=== PATIENT | male | born 1955 | race African-American/Black ===

== ENCOUNTER 2016-03-24 17:41 | Emergency (ER) | payer OTHER ==
[~2016-03-24] VITALS: Ht 172.7 cm; Wt 86.2 kg
[~2016-03-24 17:41] MED LIST: ACET325T9 PO; ALBUTEROL; AMIT25TA PO; AMLO10TA2 PO; AMLO10TA4 PO; AMLO5TAB2 PO; ASPI81TA2 PO; ASPI81TA9 PO; ATOR40TA59 PO; ATORVASTATIN CA80 MG PO; BISA-42 PO; BUDE10.2 IH; BUME2TAB PO; CANA300T PO; CARV12.52 PO; CARV25TA2 PO; CARV6.25 PO; CITA20TA5 PO; CLOP75TA PO; CYCL5TAB PO; DOXA4TAB3 PO; FLUT1DIS3 IH; FURO-68 PO; FURO40TA4; FURO40TA4 PO; GABA600T PO; HYDR-2868 PO; HYDR-2869 PO; Hydralazine Hcl PO; INSU100C SQ; INSU100C4 SQ; INSU100I13 SQ; INSU100I17 SQ; INSU100I27 SQ; INSU100V31; INSU100V8 SQ; ISOS120T2 PO; ISOS30TA17 PO; ISOS30TA4 PO; ISOS60TA2 PO; LEVO50TA5 PO; LISI-334 PO; LOSA50TA2 PO; LOSA50TA6 PO; METO2.5T PO; METR500T PO; NAPR250T2 PO; NIFE30TA7 PO; NITR0.4T SL; OMEP40CA5 PO; OXYC-250 PO; OXYC-323 PO; OXYC10TA32 PO; OXYC5TAB PO; PANT40TA5 PO; POLY119P4 PO; POTA20TA12 PO; PREG75CA PO; PROAIR HFA8.5 GM IH; SENN1TAB21 PO; SIMV20TA3 PO; SIMV40TA3 PO; SULF1TAB24 PO; TAMS0.4C2 PO; TAMS0.4C97 PO; TRAM50TA PO; WARF3TAB PO; WARF5TAB PO
[2016-03-24 18:11] VITALS: BP 172/82
--- NOTE | 2016-03-24 18:16 | PHYS DOC ---
Past Medical History Past Medical History: CAD, CHF, COPD, Diabetes-Type II, Hypertension, Kidney Stone, [place], Other Additional Past Medical Histor: Neuropathy, drug seeking behavior,iv drug use, Past Surgical History: Cholecystectomy, Coronary Bypass Surgery, Other Additional Past Surgical Histo: FEM/POP BYPASS Alcohol Use: None Drug Use: Heroin, Marijuana Adult General Chief Complaint Chief Complaint: FLANK PAIN HPI HPI Patient is a 60 year old male who presents with flank pain. Patient reports this evening he had acute onset of aching, stabbing right flank pain. This is accompanied by nausea. He has not vomited. No chest discomfort or shortness of breath. No fever. Patient has not taken anything for symptoms at home. Of note, patient has history kidney stones. Review of Systems Review of Systems Constitutional: Denies fever or chills Eyes: Denies change in visual acuity or eye pain HENT: Denies nasal congestion or sore throat Respiratory: Denies cough or shortness of breath Cardiovascular: Denies chest pain GI: Nausea. Denies abdominal pain, vomiting, bloody stools or diarrhea : Denies dysuria or hematuria Musculoskeletal: R flank pain Integument: Denies rash or skin lesions Neurologic: Denies headache, focal weakness or sensory changes Current Medications Current Medications Current Medications Medications (Trade) Dose Ordered Sig/John Start Time Stop Time Status Last Admin Dose Admin Acetaminophen/ Hydrocodone Bitart (Lortab 5/325) 2 tab 1X ONCE 03/24/16 19:15 03/24/16 19:16 DC 03/24/16 19:15 2 TAB Insulin Human Regular (Novolin R Vial) 8 unit 1X ONCE 03/24/16 20:45 03/24/16 20:50 DC 03/24/16 20:45 8 UNIT Morphine Sulfate 4 mg 4 mg 1X ONCE 03/24/16 18:30 03/24/16 19:09 DC Ondansetron HCl (Zofran Odt) 4 mg 1X ONCE 03/24/16 19:15 03/24/16 19:16 DC 03/24/16 19:15 4 MG Ondansetron HCl (Zofran) 4 mg 1X ONCE 03/24/16 18:30 03/24/16 19:09 DC Sodium Chloride (Iv Sodium Chloride 0.9% 500ml Bag) 500 ml @ 500 mls/hr 1X ONCE 03/24/16 18:30 03/24/16 19:09 DC Allergies Allergies Allergies Coded Allergies Type Severity Reaction Last Updated Verified No Known Drug Allergies 04/07/14 No Physical Exam Physical Exam Constitutional: Well developed, well nourished, no acute distress, non-toxic appearance HENT: Normocephalic, atraumatic, bilateral external ears normal Eyes: EOMI, conjunctiva normal, no discharge Neck: Normal range of motion, no stridor Cardiovascular: Heart rate normal, regular rhythm, no murmur Lungs & Thorax: Bilateral breath sounds clear to auscultation Abdomen: Bowel sounds normal, soft, non-distended, mild R side TTP without guarding or rebound Skin: Warm, dry, no erythema, no rash Back: R CVA TTP Extremities: No obvious deformity, no edema Neurologic: Alert and oriented X 3, no gross deficits noted Current Patient Data Vital Signs Vital Signs Date Time Temp Pulse Resp B/P Pulse Ox O2 Delivery O2 Flow Rate FiO2 03/24/16 19:15 16 98 Room Air 03/24/16 18:11 98.2 71 172/82 98.2 Lab Values Laboratory Tests Test 03/24/16 18:40 03/24/16 19:45 Urine Collection Type Unknown Urine Color Yellow Urine Clarity Clear Urine pH 6.0 Urine Specific [place] 1.015 Urine Protein 100mg/dL (NEG-TRACE) Urine Glucose (UA) >=1000mg/dL (NEG) Urine Ketones (Stick) Negativemg/dL (NEG) Urine Blood Negative (NEG) Urine Nitrite Negative (NEG) Urine Bilirubin Negative (NEG) Urine Urobilinogen Dipstick 0.2mg/dL (0.2 mg/dL) Urine Leukocyte Esterase Negative (NEG) Urine RBC Occ/HPF (0-2) Urine WBC Occ/HPF (0-4) Urine Squamous Epithelial Cells Occ/LPF Urine Bacteria 0/HPF (0-FEW) Urine Hyaline Casts Moderate/HPF White Blood Count 8.3x10^3/uL (4.0-11.0) Red Blood Count 4.59x10^6/uL (4.30-5.70) Hemoglobin 13.1g/dL (13.0-17.5) Hematocrit 40.9% (39.0-53.0) Mean Corpuscular Volume 89fL (79-100) Mean Corpuscular Hemoglobin 29pg (25-35) Mean Corpuscular Hemoglobin Concent 32g/dL (31-37) Red Cell Distribution Width 16.1% (11.5-14.5) H Platelet Count 207x10^3/uL (140-400) Neutrophils (%) (Auto) 79% (31-73) H Lymphocytes (%) (Auto) 16% (24-48) L Monocytes (%) (Auto) 4% (0-9) Eosinophils (%) (Auto) 1% (0-3) Basophils (%) (Auto) 1% (0-3) Neutrophils # (Auto) 6.6x10^3uL (1.8-7.7) Lymphocytes # (Auto) 1.3x10^3/uL (1.0-4.8) Monocytes # (Auto) 0.3x10^3/uL (0.0-1.1) Eosinophils # (Auto) 0.1x10^3/uL (0.0-0.7) Basophils # (Auto) 0.1x10^3/uL (0.0-0.2) Sodium Level 141mmol/L (136-145) Potassium Level 4.3mmol/L (3.5-5.1) Chloride Level 103mmol/L (98-107) Carbon Dioxide Level 29mmol/L (21-32) Anion Gap 9 (6-14) Blood Urea Nitrogen 40mg/dL (8-26) H Creatinine 2.0mg/dL (0.7-1.3) H Estimated GFR (Cockcroft-Gault) 41.4 BUN/Creatinine Ratio 20 (6-20) Glucose Level 475mg/dL (70-99) H Calcium Level 9.7mg/dL (8.5-10.1) Total Bilirubin 0.5mg/dL (0.2-1.0) Aspartate Amino Transferase (AST) 15U/L (15-37) Alanine Aminotransferase (ALT) 27U/L (16-63) Alkaline Phosphatase 161U/L (46-116) H Total Protein 7.6g/dL (6.4-8.2) Albumin 3.4g/dL (3.4-5.0) Albumin/Globulin Ratio 0.8 (1.0-1.7) L Laboratory Tests 03/24/16 19:45 Laboratory Tests 03/24/16 19:45 EKG EKG [] Radiology/Procedures Radiology/Procedures CT A/P: IMPRESSION No acute abnormality of the abdomen and pelvis is evident. Extensive calcified atheromatous disease. No focal aneurysmal dilatation of the abdominal aorta is seen. No urinary tract stone or hydronephrosis or hydroureter seen. Cardiomegaly. Course & Med Decision Making Course & Med Decision Making Pertinent Labs and Imaging studies reviewed. (See chart for details) Patient is 6-year-old male who presents with flank pain. Patient noted to the emergency department, has history of drug-seeking behavior. Will obtain CT abdomen/pelvis to rule out kidney stone. Pain possibly due to muscle spasm. Will also obtain basic labs. IV fluids, pain medication, nausea medication ordered for relief of symptoms. CT results as above. Nursing staff had difficulty obtaining IV access on patient, who then refused to be stuck anymore. Pain medication and nausea medication changed to oral route. Labs notable for hyperglycemia, but no evidence of DKA. Creatinine elevated but at baseline. Discussed results with patient. Discussed results with patient, as well as why IV access is needed, however he continues to refuse any more sticks. As he is refusing any more IV attempts, we will give subcutaneous insulin rather than further IVF. Discussed with patient the need for aggressive oral hydration as well as need to follow up with PCP. Patient discharged home with rx for muscle relaxant, instructions for close follow-up, strict return precautions. Dragon Disclaimer Dragon Disclaimer This electronic medical record was generated, in whole or in part, using a voice recognition dictation system. Departure Departure Impression: Primary Impression: Flank pain Additional Impression: Hyperglycemia Disposition: 01 HOME, SELF-CARE Condition: STABLE Referrals: NO PCP (PCP) Patient Instructions: Flank Pain, Hyperglycemia Additional Instructions: Thank you for allowing us to provide care today in the Emergency Department. Take the provided medication as directed. Use caution when taking this medication as it can make you drowsy. Schedule a follow up appointment with your primary care doctor. You have been provided a list of doctors in the area if you want a new doctor. It is very important for you to call and make an appointment to be seen in follow-up. Return promptly to the Emergency Department if you develop any new or concerning symptoms. Scripts Cyclobenzaprine Hcl 10 Mg [id number] Mg PO TID PRN MUSCLE SPASMS #15 TAB Prov:PAMELA LICEA MD 03/24/16 Problem Qualifiers PAMELA LICEA MD Mar 24, 2016 18:15
[2016-03-24] MEDS ORDERED: ONDANSETRON PF 4 MG/2 ML VIAL. IV ONE (18:30)
[2016-03-24] MEDS ORDERED: MORPHINE SULFATE 4 MG/ML DISP.SYRIN. IV ONE (18:30)
[2016-03-24] MEDS ORDERED: IV NORMAL SALINE 500ML BAG 500 ML IV ONE (18:30)
[2016-03-24 18:54] LABS: BILIRUBIN,URINE NEGATIVE (NEG); GLUCOSE,URINE >=1000 mg/dL (NEG); NITRITE,URINE NEGATIVE (NEG); PROTEIN,URINE 100 mg/dL (NEG-TRACE); UROBILINOGEN,URINE 0.2 mg/dL (0.2 mg/dL)
[2016-03-24 18:59] LABS: BACTERIA,URINE 0 /HPF (0-FEW); RBC,URINE OCC /HPF (0-2); SQUAMOUS EPITHELIAL CELL,UR OCC /LPF; WBC,URINE OCC /HPF (0-4)
--- NOTE | 2016-03-24 19:09 | RAD ---
PROCEDURE CT study of the abdomen and pelvis without contrast HISTORY Right flank pain. TECHNIQUE Noncontrast helical CT scanning of the abdomen and pelvis was performed. Without contrast, the sensitivity to detect organ pathology and GI tract pathology is decreased. One or more of the following individualized dose reduction techniques were utilized for this study: 1. Automated exposure control 2. Adjustment of the mA and/or kV according to patient size 3. Use of iterative reconstruction technique COMPARISON March 14, 2016. FINDINGS The liver and spleen and pancreas are homogeneous in appearance on this noncontrast study. The gallbladder is surgically absent. No extrahepatic biliary ductal dilatation is seen. No adrenal mass is evident. Vascular calcifications of both kidneys are seen. No renal stone or ureteral stone or hydronephrosis or hydroureter is seen. Urinary bladder wall is smooth. No renal mass is seen on either side. No focal aneurysmal dilatation of the abdominal aorta is seen. Calcified atheromatous disease of the abdominal aorta and iliac arteries and celiac artery and superior mesenteric artery and both renal arteries is seen. No enlarged abdominal or pelvic lymphadenopathy is seen. The appendix is normal. No obstructive bowel pattern is evident. No free air or free fluid or inflammatory change is seen. No osteolytic process is seen. Atelectasis of both lung bases is seen. Cardiomegaly is evident. IMPRESSION No acute abnormality of the abdomen and pelvis is evident. Extensive calcified atheromatous disease. No focal aneurysmal dilatation of the abdominal aorta is seen. No urinary tract stone or hydronephrosis or hydroureter seen. Cardiomegaly. Electronically signed by: Kenrick Dorantes MD (Mar 24, 2016 19:08:05)
[2016-03-24] MEDS ORDERED: ONDANSETRON ODT 4 MG TAB.RAPDIS PO ONE (19:15)
[2016-03-24] MEDS ORDERED: HYDROCODONE/APAP 5/325MG TABLET. PO ONE (19:15)
[2016-03-24 19:52] LABS: BASO # 0.1 x10^3/uL (0.0-0.2); BASO % 1 % (0-3); EOS % 1 % (0-3); HEMATOCRIT 40.9 % (39.0-53.0); HEMOGLOBIN 13.1 g/dL (13.0-17.5); LYMPH # 1.3 x10^3/uL (1.0-4.8); LYMPH % 16 % (24-48); MEAN CORPUSCULAR HEMOGLOBIN 29 pg (25-35); MEAN CORPUSCULAR HGB CONC 32 g/dL (31-37); MEAN CORPUSCULAR VOLUME 89 fL (79-100); MONO % 4 % (0-9); NEUT % 79 % (31-73); PLATELET COUNT 207 x10^3/uL (140-400); RED BLOOD COUNT 4.59 x10^6/uL (4.30-5.70); RED CELL DISTRIBUTION WIDTH 16.1 % (11.5-14.5); WHITE BLOOD COUNT 8.3 x10^3/uL (4.0-11.0)
[2016-03-24 20:27] LABS: CALCIUM 9.7 mg/dL (8.5-10.1); GFR 41.4; POTASSIUM 4.3 mmol/L (3.5-5.1)
[2016-03-24 20:33] LABS: ALBUMIN 3.4 g/dL (3.4-5.0); ALBUMIN/GLOBULIN RATIO 0.8 (1.0-1.7); TOTAL BILIRUBIN 0.5 mg/dL (0.2-1.0); TOTAL PROTEIN 7.6 g/dL (6.4-8.2)
[2016-03-24] MEDS ORDERED: CYCL10TA2 PO (20:42)
[2016-03-24] MEDS ORDERED: INSULIN REGULAR 100 UNIT/ML 10ML VIAL. SQ ONE (20:45)
== END 2016-03-24 21:21 | disposition home or self-care (01) ==
LOC: ER 17:41
DX: E11.65 Type 2 diabetes mellitus with hyperglycemia (principal); I25.2 Old myocardial infarction; I11.0 Hypertensive heart disease with heart failure; I50.9 Heart failure, unspecified; I25.10 Atherosclerotic heart disease of native coronary artery without angina pectoris; J44.9 Chronic obstructive pulmonary disease, unspecified; E11.40 Type 2 diabetes mellitus with diabetic neuropathy, unspecified; F12.10 Cannabis abuse, uncomplicated; F11.10 Opioid abuse, uncomplicated; Z87.442 Personal history of urinary calculi; Z95.1 Presence of aortocoronary bypass graft; Z90.49 Acquired absence of other specified parts of digestive tract
CPT/HCPCS: 36415; 74176; 80053; 81001; 85027; 96372; 99285; J1815; Q0162

== ENCOUNTER 2016-04-13 03:23 | Emergency (ER) | payer OTHER ==
[~2016-04-13 03:23] MED LIST changes: +CYCL10TA2 PO
--- NOTE | 2016-04-13 04:00 | PHYS DOC ---
Past Medical History Past Medical History: CAD, CHF, COPD, Diabetes-Type II, Hypertension, Kidney Stone, [place], Other Additional Past Medical Histor: Neuropathy, drug seeking behavior,iv drug use, Past Surgical History: Cholecystectomy, Coronary Bypass Surgery, Other Additional Past Surgical Histo: FEM/POP BYPASS Alcohol Use: None Drug Use: Heroin, Marijuana Adult General Chief Complaint Chief Complaint: MEDICATION REFILL HPI HPI Patient is a 60 year old gentleman with multiple medical problems presents ER today complaining of pain all throughout. Patient complains of pain to his teeth. Patient points of pain to his groins. Patient complains of having withdrawal symptoms from pain medicines. Patient reports that his doctor will give her any pain medicine service here in order to get assistance with pain management. Patient denies any fevers shaking chills nausea vomiting or diarrhea. Patient reports that he is aching all over and is requesting pain management. Patient's physical exam is unremarkable the ER. Patient does have a loose lower tooth however there is no evidence of any abscess or infection to his tooth at this time. Review of Systems Review of Systems Constitutional: Denies fever or chills [] Eyes: Denies change in visual acuity, redness, or eye pain [] Review of systems are negative except as documented in the history of present illness portion. Allergies Allergies Allergies Coded Allergies Type Severity Reaction Last Updated Verified No Known Drug Allergies 04/07/14 No Physical Exam Physical Exam Constitutional: Well developed, well nourished, no acute distress, non-toxic appearance. [] HENT: Normocephalic, atraumatic, bilateral external ears normal, oropharynx moist, no oral exudates, nose normal. [] Eyes: PERRLA, EOMI, conjunctiva normal, no discharge. [] Neck: Normal range of motion, no tenderness, supple, no stridor. [] Cardiovascular:Heart rate regular rhythm, no murmur [] Lungs & Thorax: Bilateral breath sounds clear to auscultation [] Abdomen: Bowel sounds normal, soft, no tenderness, no masses, no pulsatile masses. [] Skin: Warm, dry, no erythema, no rash. [] Back: No tenderness, no CVA tenderness. [] Extremities: No tenderness, no cyanosis, no clubbing, ROM intact, no edema. [] Neurologic: Alert and oriented X 3, normal motor function, normal sensory function, no focal deficits noted. [] Psychologic: Affect normal, judgement normal, mood normal. [] EKG EKG [] Radiology/Procedures Radiology/Procedures [] Course & Med Decision Making Course & Med Decision Making Pertinent Labs and Imaging studies reviewed. (See chart for details) [] This is a 6-year-old gentleman who presents ER today requesting pain management for his chronic pain. Patient reports his primary care physician will not give him any narcotic medicines that he is hoping that we would assist him with his pain. Patient does have an extensive history for narcotic abuse. Patient is a heroin user. I've discussed with the patient that he will need to talk to his doctor about his chronic pain issues. I will compassionately withhold any narcotic pain medicines from this patient in order to assist him with narcotic cessation. Dragon Disclaimer Dragon Disclaimer This electronic medical record was generated, in whole or in part, using a voice recognition dictation system. Departure Departure Impression: Primary Impression: Opioid abuse Additional Impression: Toothache Disposition: 01 HOME, SELF-CARE Condition: STABLE Referrals: UNKNOWN PCP NAME (PCP) Patient Instructions: Chronic Pain, Chronic Pain Management, Toothache-Brief Additional Instructions: Please talk to for further evaluation and management of her chronic pain. Problem Qualifiers RAUL SIMMONS MD Apr 13, 2016 04:00
[2016-04-13] MEDS ORDERED: TRAMADOL 50 MG TABLET. PO ONE (04:30)
== END 2016-04-13 04:46 | disposition home or self-care (01) ==
LOC: ER 03:23
DX: F11.10 Opioid abuse, uncomplicated (principal); K08.89 Other specified disorders of teeth and supporting structures; G89.29 Other chronic pain; I25.10 Atherosclerotic heart disease of native coronary artery without angina pectoris; E11.40 Type 2 diabetes mellitus with diabetic neuropathy, unspecified; I11.0 Hypertensive heart disease with heart failure; I50.9 Heart failure, unspecified; J44.9 Chronic obstructive pulmonary disease, unspecified; I25.2 Old myocardial infarction; F12.10 Cannabis abuse, uncomplicated; Z90.49 Acquired absence of other specified parts of digestive tract; Z95.1 Presence of aortocoronary bypass graft; Z87.442 Personal history of urinary calculi
CPT/HCPCS: 99282

== ENCOUNTER 2016-04-26 19:57 | Inpatient (IN) | payer OTHER ==
[~2016-04-26] VITALS: Ht 172.7 cm; Wt 78.6 kg
[2016-04-26 21:16] LABS: BASO # 0.1 x10^3/uL (0.0-0.2); BASO % 1 % (0-3); EOS % 1 % (0-3); HEMATOCRIT 37.4 % (39.0-53.0); LYMPH # 1.3 x10^3/uL (1.0-4.8); LYMPH % 16 % (24-48); MEAN CORPUSCULAR HEMOGLOBIN 29 pg (25-35); MEAN CORPUSCULAR HGB CONC 32 g/dL (31-37); MEAN CORPUSCULAR VOLUME 91 fL (79-100); MONO % 4 % (0-9); NEUT % 79 % (31-73); PLATELET COUNT 209 x10^3/uL (140-400); RED BLOOD COUNT 4.11 x10^6/uL (4.30-5.70); RED CELL DISTRIBUTION WIDTH 14.8 % (11.5-14.5); WHITE BLOOD COUNT 7.9 x10^3/uL (4.0-11.0)
[2016-04-26 21:18] LABS: BILIRUBIN,URINE NEGATIVE (NEG); GLUCOSE,URINE >=1000 mg/dL (NEG); NITRITE,URINE NEGATIVE (NEG); PROTEIN,URINE 100 mg/dL (NEG-TRACE); UROBILINOGEN,URINE 0.2 mg/dL (0.2 mg/dL)
[2016-04-26 21:39] LABS: ALBUMIN 3.3 g/dL (3.4-5.0); ALBUMIN/GLOBULIN RATIO 0.8 (1.0-1.7); CALCIUM 9.7 mg/dL (8.5-10.1); CREATININE 1.8 mg/dL (0.7-1.3); GFR 46.6; POTASSIUM 4.7 mmol/L (3.5-5.1); TOTAL BILIRUBIN 0.4 mg/dL (0.2-1.0); TOTAL PROTEIN 7.6 g/dL (6.4-8.2)
[2016-04-26 21:53] LABS: BACTERIA,URINE 0 /HPF (0-FEW); RBC,URINE 0 /HPF (0-2); SQUAMOUS EPITHELIAL CELL,UR FEW /LPF; WBC,URINE 0 /HPF (0-4)
[2016-04-26] MEDS ORDERED: IV NORMAL SALINE 1000ML BAG 1,000 ML IV ONE (22:00)
--- NOTE | 2016-04-26 22:02 | ED.ADGEN ---
Past Medical History Past Medical History: CAD, CHF, COPD, Diabetes-Type II, Hypertension, Kidney Stone, [place], Other Additional Past Medical Histor: Neuropathy, drug seeking behavior,iv drug use, Past Surgical History: Cholecystectomy, Coronary Bypass Surgery, Other Additional Past Surgical Histo: FEM/POP BYPASS Alcohol Use: None Drug Use: Heroin, Marijuana Adult General Chief Complaint Chief Complaint: SHORTNESS OF BREATH HPI HPI Patient is a 61 year old man, history of type 2 diabetes mellitus, hypertension , COPD, CHF, who presents to the emergency department with complaint of "just not feeling well". Patient states he began feeling ill this afternoon, is complaining of generalized malaise, no focal weakness, some shortness of breath , mild cough, rhinorrhea, no nausea, vomiting, diarrhea, no chest pain, no headache, no injuries. He states that he has been compliant with his medications. Denies any swelling extremities, denies any recent travel or surgery. Review of Systems Review of Systems Constitutional: Denies fever or chills. Generalized malaise. Eyes: Denies change in visual acuity. [] HENT: Denies nasal congestion or sore throat. [] Respiratory: Nonproductive cough, shortness of breath.] Cardiovascular: Denies chest pain or edema. [] GI: Denies abdominal pain, nausea, vomiting, bloody stools or diarrhea. [] : Denies dysuria. [] Musculoskeletal: Denies back pain or joint pain. [] Integument: Denies rash. [] Neurologic: Denies headache, focal weakness or sensory changes. [] Endocrine: Denies polyuria or polydipsia. [] Lymphatic: Denies swollen glands. [] Psychiatric: Denies depression or anxiety. [] Current Medications Current Medications Current Medications Medications (Trade) Dose Ordered Sig/John Start Time Stop Time Status Last Admin Dose Admin Acetaminophen (Tylenol) 650 mg PRN Q4HRS PRN 04/26/16 23:15 04/27/16 23:14 Acetaminophen 650 mg 650 mg 1X ONCE 04/26/16 23:15 04/26/16 23:16 DC Albuterol/ Ipratropium (Duoneb) 3 ml RTQID 04/27/16 08:00 04/28/16 07:59 Dextrose 12.5 gm PRN Q15MIN PRN 04/26/16 23:15 Insulin Aspart (Novolog) 0-7 UNITS TIDWMEALS 04/27/16 08:00 Insulin Human Regular/Sodium Chloride (Novolin R Vial/ Iv Normal Saline 150ml) 151.5 ml @ 0 mls/hr CONT PRN 04/26/16 23:15 Ondansetron HCl 4 mg 4 mg PRN Q8HRS PRN 04/26/16 23:15 04/27/16 23:14 Sodium Chloride (Iv Sodium Chloride 0.9% 1000ml Bag) 1,000 ml @ 125 mls/hr Q8H 04/26/16 23:06 04/27/16 23:05 Allergies Allergies Allergies Coded Allergies Type Severity Reaction Last Updated Verified No Known Drug Allergies 04/07/14 No Physical Exam Physical Exam Constitutional: Well developed, well nourished, no acute distress, non-toxic appearance. [] HENT: Normocephalic, atraumatic, bilateral external ears normal, oropharynx moist, no oral exudates, nose normal. [] Eyes: PERRLA, EOMI, conjunctiva normal, no discharge. [] Neck: Normal range of motion, no tenderness, supple, no stridor. [] Cardiovascular:Heart rate regular rhythm, no murmur , S1, S2, no rubs or gallops. [] Lungs & Thorax: Denies breath sounds at bases bilaterally, no wheezing, rhonchi , rales. No chest wall tenderness or crepitus. [] Abdomen: Bowel sounds normal, soft, no tenderness, no masses, no pulsatile masses. [] Skin: Warm, dry, no erythema, no rash. [] Back: No tenderness, no CVA tenderness. [] Extremities: No tenderness, no cyanosis, no clubbing, ROM intact, patient with 1 + pedal edema bilaterally. Neurologic: Alert and oriented X 3, normal motor function, normal sensory function, no focal deficits noted. [] Psychologic: Affect normal, judgement normal, mood normal. [] Current Patient Data Vital Signs Vital Signs Date Time Temp Pulse Resp B/P Pulse Ox O2 Delivery O2 Flow Rate FiO2 04/26/16 20:08 97.5 96 24 177/84 99 Room Air 97.5 Lab Values Laboratory Tests Test 04/26/16 20:25 04/26/16 21:00 04/26/16 21:20 White Blood Count 7.9x10^3/uL (4.0-11.0) Red Blood Count 4.11x10^6/uL (4.30-5.70) L Hemoglobin 12.0g/dL (13.0-17.5) L Hematocrit 37.4% (39.0-53.0) L Mean Corpuscular Volume 91fL (79-100) Mean Corpuscular Hemoglobin 29pg (25-35) Mean Corpuscular Hemoglobin Concent 32g/dL (31-37) Red Cell Distribution Width 14.8% (11.5-14.5) H Platelet Count 209x10^3/uL (140-400) Neutrophils (%) (Auto) 79% (31-73) H Lymphocytes (%) (Auto) 16% (24-48) L Monocytes (%) (Auto) 4% (0-9) Eosinophils (%) (Auto) 1% (0-3) Basophils (%) (Auto) 1% (0-3) Neutrophils # (Auto) 6.3x10^3uL (1.8-7.7) Lymphocytes # (Auto) 1.3x10^3/uL (1.0-4.8) Monocytes # (Auto) 0.3x10^3/uL (0.0-1.1) Eosinophils # (Auto) 0.1x10^3/uL (0.0-0.7) Basophils # (Auto) 0.1x10^3/uL (0.0-0.2) Sodium Level 138mmol/L (136-145) Potassium Level 4.7mmol/L (3.5-5.1) Chloride Level 101mmol/L (98-107) Carbon Dioxide Level 24mmol/L (21-32) Anion Gap 13 (6-14) Blood Urea Nitrogen 34mg/dL (8-26) H Creatinine 1.8mg/dL (0.7-1.3) H Estimated GFR (Cockcroft-Gault) 46.6 BUN/Creatinine Ratio 19 (6-20) Glucose Level 538mg/dL (70-99) *H Calcium Level 9.7mg/dL (8.5-10.1) Total Bilirubin 0.4mg/dL (0.2-1.0) Aspartate Amino Transferase (AST) 13U/L (15-37) L Alanine Aminotransferase (ALT) 20U/L (16-63) Alkaline Phosphatase 142U/L (46-116) H Troponin I Quantitative < 0.017ng/mL (0.000-0.055) UT-Urj-N-Type Natriuretic Peptide 1276pg/mL (0-124) H Total Protein 7.6g/dL (6.4-8.2) Albumin 3.3g/dL (3.4-5.0) L Albumin/Globulin Ratio 0.8 (1.0-1.7) L Urine Collection Type Unknown Urine Color Yellow Urine Clarity Clear Urine pH 7.0 Urine Specific [place] 1.015 Urine Protein 100mg/dL (NEG-TRACE) Urine Glucose (UA) >=1000mg/dL (NEG) Urine Ketones (Stick) Negativemg/dL (NEG) Urine Blood Negative (NEG) Urine Nitrite Negative (NEG) Urine Bilirubin Negative (NEG) Urine Urobilinogen Dipstick 0.2mg/dL (0.2 mg/dL) Urine Leukocyte Esterase Negative (NEG) Urine RBC 0/HPF (0-2) Urine WBC 0/HPF (0-4) Urine Squamous Epithelial Cells Few/LPF Urine Bacteria 0/HPF (0-FEW) Urine Hyaline Casts Moderate/HPF Influenza Type A Antigen Negative (NEGATIVE) Influenza Type B Antigen Negative (NEGATIVE) Laboratory Tests 04/26/16 20:25 Laboratory Tests 04/26/16 20:25 EKG EKG EC: Sinus rhythm, heart rate 91 beats minute, left axis deviation with incomplete right bundle tg block noted, left internal hypertrophy, moderate baseline artifact noted, QTc of 506, MO 138, QRS of 116, abnormal ECG, does not meet STEMI criteria. As interpreted by me. [] Radiology/Procedures Radiology/Procedures Chest x-ray: One view: Top normal cardiac silhouette, sternotomy wires in place , no discrete infiltrates, effusions, soft tissue or bony abnormalities identified. As interpreted by me. [] Course & Med Decision Making Course & Med Decision Making Pertinent Labs and Imaging studies reviewed. (See chart for details) Patient complaining of generalized malaise, some shortness breath, no chest pain , GI complaints as well. Noted to have an blood glucose of greater than 500, no evidence of acidosis noted, chest x-rays are markable, patient with a persistently elevated proBNP at greater than 1200. Troponin is negative. Patient received IV fluids in the ED, will be initiated on insulin protocol with drip for hyperglycemia, no evidence of infection noted, although patient states he is taking medications as directed, do have concerns that he has been noncompliant with medications. Did discuss with patient that based on his history of drug abuse, and concern for misuse, that he will not receive IV narcotics at this time, this was also discussed with Dr. Quinteros of internal medicine, the patient's accepting physician, who is in agreement with this plan. Patient was offered oral medications for his chronic musculoskeletal pain. Patient admitted to the medical surgical floor, with bridge orders per request of Dr. Quinteros. Insulin drip initiated in the ED without issue. Dragon Disclaimer Dragon Disclaimer This electronic medical record was generated, in whole or in part, using a voice recognition dictation system. Departure Impression: Primary Impression: Hyperglycemia Disposition: ADMITTED INPATIENT Admitting Physician: Other Condition: IMPROVED CHENG MOTA DO Apr 26, 2016 22:02
[2016-04-26 22:10] LABS: OBC FLU VALID
[2016-04-26] MEDS ORDERED: ACETAMINOPHEN 325 MG TABLET. PO ONE (23:15)
[2016-04-26] MEDS ORDERED: ACETAMINOPHEN 325 MG TABLET. PO PRN (23:15)
[2016-04-26] MEDS ORDERED: INSULIN REGULAR VIAL 150 UNIT in 0.9 % SODIUM CHLORIDE 150ML 150 ML IV PRN (23:15)
[2016-04-26] MEDS ORDERED: ONDANSETRON PF 4 MG/2 ML VIAL. IV PRN (23:15)
[2016-04-26] MEDS ORDERED: DEXTROSE 50% 25 GM / 50ML DISP.SYRIN. IV PRN (23:15)
[2016-04-27] MEDS: IV NORMAL SALINE 1000ML BAG 1,000 ML IV SCH ×3 (01:12→11:04)
[2016-04-27 01:30] VITALS: BP 166/73
[2016-04-27 03:06] VITALS: BP 147/65
[2016-04-27 06:06] LABS: BASO % 1 % (0-3); EOS % 2 % (0-3); HEMATOCRIT 35.1 % (39.0-53.0); HEMOGLOBIN 11.5 g/dL (13.0-17.5); LYMPH % 27 % (24-48); MEAN CORPUSCULAR HEMOGLOBIN 29 pg (25-35); MEAN CORPUSCULAR HGB CONC 33 g/dL (31-37); MEAN CORPUSCULAR VOLUME 89 fL (79-100); MONO % 8 % (0-9); NEUT % 62 % (31-73); PLATELET COUNT 212 x10^3/uL (140-400); RED BLOOD COUNT 3.94 x10^6/uL (4.30-5.70); RED CELL DISTRIBUTION WIDTH 14.4 % (11.5-14.5); WHITE BLOOD COUNT 7.4 x10^3/uL (4.0-11.0)
[2016-04-27 06:17] LABS: CALCIUM 8.8 mg/dL (8.5-10.1); CREATININE 1.5 mg/dL (0.7-1.3); GFR 57.6; POTASSIUM 3.9 mmol/L (3.5-5.1)
[2016-04-27 07:00] VITALS: BP 169/61
[2016-04-27] MEDS: IPRATRPIUM/ALBUTEROL 0.5/2.5MG 3 ML NEBU. NEB SCH ×4 (07:58→19:42)
[2016-04-27] MEDS: INSULIN ASPART 300 UNITS/3 ML INSULN.PEN SQ SCH ×3 (08:12→17:28)
--- NOTE | 2016-04-27 08:46 | EKG ---
[facility] [address] [place] [address] Test Date: 2016-04-26 Test Time: 20:06:45 Pat Name: DARNELL AMIN Department: Room: Gender: M Electrotyper: : 1955 Requested By: CHENG MOTA Order Number: [id number] Reading MD: Measurements Intervals [place] Rate: 91 P: 44 NM: 138 QRS: -10 QRSD: 116 T: 83 QT: 410 QTc: 506 Interpretive Statements SINUS RHYTHM LEFT ATRIAL ABNORMALITY LEFTWARD AXIS INCOMPLETE RIGHT BUNDLE BRANCH BLOCK LVH WITH REPOLARIZATION ABNORMALITY PROLONGED QT RI6.01 Unconfirmed report No previous ECG available for comparison
--- NOTE | 2016-04-27 10:15 | RAD ---
AP portable chest radiograph 04/26/2016 Clinical History: Chest pain and shortness of breath. An AP portable erect digital radiograph of the chest was obtained. Comparison study is dated 01/16/2016. Surgical changes are seen consistent with a CABG procedure. The cardiac silhouette is mildly enlarged. The thoracic aorta is tortuous. Atherosclerotic calcification of the thoracic aorta is seen. No acute pulmonary infiltrate is noted. No pleural effusion or pneumothorax is seen. Impression: Mild cardiomegaly. No acute pulmonary infiltrate is seen.
[2016-04-27 11:00] VITALS: BP 165/59
[2016-04-27 15:00] VITALS: BP 171/79
--- NOTE | 2016-04-27 17:06 | DISCH ---
DISCHARGE INSTRUCTIONS Condition on Discharge Condition on Discharge: Stable Activity After Discharge Activity Instructions for Disc: No restrictions Diet after Discharge Diet after Discharge: Diabetic No Calorie Level Contacting the DR. after DC Call your doctor for: Follow-Up Follow up with: PCP in 1 week ALTAGRACIA WING MD Apr 27, 2016 17:06
--- NOTE | 2016-04-28 03:10 | SSS ---
ADMIT DATE: 04/27/2016 CHIEF COMPLAINT: Shortness of breath, hyperglycemia. HISTORY OF PRESENT ILLNESS: The patient is a 61-year-old gentleman with significant cardiac history as well as diabetes who is unfortunately a frequent flyer here in the hospital for various complaints. He presented to the Emergency Room with complaints of shortness of breath and "just not feeling well." He states that general malaise started in the late afternoon, no focal pain except for the shortness of breath, mild cough, mild runny nose. Denies any other symptoms including fevers. In the Emergency Room, he was essentially found without any respiratory distress or evidence of infection. However, his blood sugar was greater than 500 and he was therefore admitted for glucose management. PAST MEDICAL HISTORY: Diabetes mellitus, COPD, CAD, CHF, hypertension, hyperlipidemia, nephrolithiasis, diabetic neuropathy, IV drug use narcotic seeking behavior. PAST SURGICAL HISTORY: He is status post coronary bypass surgery, cholecystectomy and fem-pop bypass. FAMILY HISTORY: Positive for CAD and diabetes. SOCIAL HISTORY: He currently lives with his sister. Positive for heroin and marijuana. ALLERGIES: No known drug allergies. MEDICATIONS: MAR reconciled with home medications. REVIEW OF SYSTEMS: Respiratory symptoms now have completely resolved. He has no major complaints. He is very hungry. Rest of organ system review is negative. PHYSICAL EXAMINATION: VITAL SIGNS: From today show a blood pressure of 171/79, heart rate of 86, respiratory rate at 18. He is afebrile. GENERAL: This is a well-nourished 61-year-old -[place] gentleman, alert and oriented, in no acute distress. HEENT: Shows no scleral icterus. LUNGS: Clear. HEART: Regular rate and rhythm. ABDOMEN: Has positive bowel sounds, soft, nontender. EXTREMITIES: Show no edema, no clubbing, no cyanosis. SKIN: Warm, soft and dry without any rash. Very dry lower extremities, evidence of venous harvesting in left lower extremity. LABORATORY DATA: CBC with a WBC of 7.4, hemoglobin 11.5, platelets of 212. BUN and creatinine of 9 and 28. Sodium this morning at 149, potassium 3.9. Glucose 115 at which time glucose drip was stopped, he has been running in the upper 100s-200s since. ASSESSMENT AND PLAN: The patient is a 61-year-old diabetic who is unfortunately noncompliant with his regimen or diet who presented with minor complaints which have resolved, possibly upper respiratory infection. Hyperglycemia likewise is under control. He is not willing to stick to diabetic diet or regular blood sugar measurements. We will therefore discharge him to home. Follow up with his primary care physician. DISCHARGE DATE: 04/27/2015 DISCHARGE DISPOSITION: To home. DISCHARGE CONDITION: Improved. DISCHARGE DIAGNOSIS: Hyperglycemia. DISCHARGE MEDICATIONS: Please see MAR. DISCHARGE INSTRUCTIONS: The patient will follow up with PCP in 1 week. ALTAGRACIA WING MD DR: DUSTY/nts JOB#: [id number] / [id number] Leroy [place]
== END 2016-04-27 19:00 | disposition home or self-care (01) | DRG 637 ==
LOC: ER 19:57 → 5 SOUTH 22:55
PROVIDERS: ADMIT Internal Medicine Hematology & Oncology; ATTEND Internal Medicine Hematology & Oncology
DX: E11.65 Type 2 diabetes mellitus with hyperglycemia (principal); N17.0 Acute kidney failure with tubular necrosis; J06.9 Acute upper respiratory infection, unspecified; E78.5 Hyperlipidemia, unspecified; E11.40 Type 2 diabetes mellitus with diabetic neuropathy, unspecified; I25.10 Atherosclerotic heart disease of native coronary artery without angina pectoris; I11.0 Hypertensive heart disease with heart failure; I50.9 Heart failure, unspecified; F11.10 Opioid abuse, uncomplicated; J44.9 Chronic obstructive pulmonary disease, unspecified; Z82.49 Family history of ischemic heart disease and other diseases of the circulatory system; Z87.442 Personal history of urinary calculi; Z83.3 Family history of diabetes mellitus; Z91.19 Patient's noncompliance with other medical treatment and regimen; Z95.1 Presence of aortocoronary bypass graft; Z90.49 Acquired absence of other specified parts of digestive tract; I25.2 Old myocardial infarction
CPT/HCPCS: 36415; 71010; 80048; 80053; 81001; 82947; 83880; 84484; 85027; 87804; 93005; 94640; 96365; J1815; J7030; J7042; J7620; 99285-25

== ENCOUNTER 2016-05-06 20:57 | Emergency (ER) | payer OTHER ==
[~2016-05-06] VITALS: Ht 172.7 cm; Wt 79.4 kg
[2016-05-06 23:04] LABS: OBC FLU VALID
[2016-05-06] MEDS ORDERED: OSEL75CA PO (23:15)
[2016-05-06] MEDS ORDERED: HYDR115S2 PO (23:15)
--- NOTE | 2016-05-06 23:15 | PHYS DOC ---
Past Medical History Past Medical History: CAD, CHF, COPD, Diabetes-Type II, Hypertension, Kidney Stone, [place], Other Additional Past Medical Histor: Neuropathy, drug seeking behavior,iv drug use, Past Surgical History: Cholecystectomy, Coronary Bypass Surgery, Other Additional Past Surgical Histo: FEM/POP BYPASS Alcohol Use: None Drug Use: Heroin, Marijuana Adult General Chief Complaint Chief Complaint: GENERALIZED BODY ACHES HPI HPI Patient is a 61 year old male who presents with malaise. Patient reports starting this evening he is feeling under the weather. He reports chills and general body aches. He denies any cough. He has not taken anything for symptoms. No other acute complaints. Review of Systems Review of Systems Constitutional: Chills, fatigue Eyes: Denies change in visual acuity or eye pain HENT: Denies nasal congestion or sore throat Respiratory: Denies cough or shortness of breath Cardiovascular: Denies chest pain GI: Denies abdominal pain, nausea, vomiting, bloody stools or diarrhea : Denies dysuria or hematuria Musculoskeletal: Generalized body aches Integument: Denies rash or skin lesions Neurologic: Denies headache, focal weakness or sensory changes Current Medications Current Medications Current Medications Medications (Trade) Dose Ordered Sig/John Start Time Stop Time Status Last Admin Dose Admin Acetaminophen (Tylenol) 1,000 mg 1X ONCE 05/06/16 23:30 05/06/16 23:31 DC 05/06/16 23:27 1,000 MG Hydralazine HCl (Apresoline) 10 mg 1X ONCE 05/06/16 23:55 05/06/16 23:56 DC 05/06/16 23:59 10 MG Oseltamivir Phosphate (Tamiflu) 75 mg 1X ONCE 05/06/16 23:30 05/06/16 23:31 DC 05/06/16 23:27 75 MG Allergies Allergies Allergies Coded Allergies Type Severity Reaction Last Updated Verified No Known Drug Allergies 04/07/14 No Physical Exam Physical Exam Constitutional: Well developed, well nourished, no acute distress, non-toxic appearance HENT: Normocephalic, atraumatic, bilateral external ears normal Eyes: EOMI, conjunctiva normal, no discharge Neck: Normal range of motion, no stridor Cardiovascular: Heart rate normal, regular rhythm, no murmur Lungs & Thorax: Bilateral breath sounds clear to auscultation Abdomen: Bowel sounds normal, soft, non-distended, no TTP Skin: Warm, dry, no erythema, no rash Extremities: No obvious deformity, no edema Neurologic: Alert and oriented X 3, no gross deficits noted Current Patient Data Vital Signs Vital Signs Date Time Temp Pulse Resp B/P Pulse Ox O2 Delivery O2 Flow Rate FiO2 05/07/16 00:17 74 18 166/73 Room Air 05/06/16 23:24 100 05/06/16 22:00 98.4 98.4 Lab Values Laboratory Tests Test 05/06/16 22:13 Influenza Type A Antigen Negative (NEGATIVE) Influenza Type B Antigen Positive (NEGATIVE) EKG EKG [] Radiology/Procedures Radiology/Procedures [] Course & Med Decision Making Course & Med Decision Making Pertinent Labs and Imaging studies reviewed. (See chart for details) Patient is 61-year-old male who presents with malaise. Has Lexie had influenza swab, which was positive for influenza B. Dose of Tamiflu and acetaminophen ordered for symptoms. Per patient's request, we will small dose of hydralazine as his blood pressure is elevated, though he is asymptomatic with respect to this. Will discharge home with prescription for Tamiflu and cough syrup. Given instructions for follow-up, return precautions. Dragon Disclaimer Dragon Disclaimer This electronic medical record was generated, in whole or in part, using a voice recognition dictation system. Departure Departure Impression: Primary Impression: Influenza B Disposition: 01 HOME, SELF-CARE Condition: STABLE Referrals: CHANDLER FUCHS DO (PCP) Patient Instructions: Influenza, Adult Additional Instructions: Thank you for allowing us to provide care today in the Emergency Department. Take the provided medication as directed. Use caution when taking the cough syrup as it can make you drowsy. Schedule a follow up appointment with your primary care doctor as soon as possible. Return promptly to the Emergency Department if you develop any new or concerning symptoms. Scripts Hydrocodone/Chlorphen Polis (Tussionex Pennkinetic Susp)480 Ml Larisa.[id number] Ml PO BID PRN COUGH #100 ML Prov:PAMELA LICEA MD 05/06/16 Oseltamivir Phosphate (Tamiflu)75 Mg Capsule1 Cap PO BID #10 CAP Prov:PAMELA LICEA MD 05/06/16 PAMELA LICEA MD May 06, 2016 23:16
[2016-05-06] MEDS ORDERED: ACETAMINOPHEN 500 MG TABLET PO ONE (23:30)
[2016-05-06] MEDS ORDERED: OSELTAMIVIR 75 MG CAPSULE PO ONE (23:30)
[2016-05-06] MEDS ORDERED: HYDRALAZINE 10 MG TABLET PO ONE (23:55)
[2016-05-07 00:17] VITALS: BP 166/73
== END 2016-05-07 00:55 | disposition home or self-care (01) ==
LOC: ER 20:57
DX: J10.1 Influenza due to other identified influenza virus with other respiratory manifestations (principal); E11.9 Type 2 diabetes mellitus without complications; I10 Essential (primary) hypertension; I25.10 Atherosclerotic heart disease of native coronary artery without angina pectoris; I50.9 Heart failure, unspecified; I25.2 Old myocardial infarction; J44.9 Chronic obstructive pulmonary disease, unspecified; I11.0 Hypertensive heart disease with heart failure; F12.10 Cannabis abuse, uncomplicated; E11.40 Type 2 diabetes mellitus with diabetic neuropathy, unspecified; Z98.890 Other specified postprocedural states; F11.10 Opioid abuse, uncomplicated; Z87.442 Personal history of urinary calculi; Z95.1 Presence of aortocoronary bypass graft
CPT/HCPCS: 87804; 99284

== ENCOUNTER 2016-06-22 18:03 | Emergency (ER) | payer OTHER ==
[~2016-06-22] VITALS: Ht 172.7 cm; Wt 81.6 kg
[~2016-06-22 18:03] MED LIST changes: +HYDR115S2 PO; +OSEL75CA PO
--- NOTE | 2016-06-22 18:36 | ED.ADGEN ---
Past Medical History Past Medical History: CAD, CHF, COPD, Diabetes-Type II, Hypertension, Kidney Stone, [place], Other Additional Past Medical Histor: Neuropathy, drug seeking behavior,iv drug use, Past Surgical History: Cholecystectomy, Coronary Bypass Surgery, Other Additional Past Surgical Histo: FEM/POP BYPASS Alcohol Use: None Drug Use: Heroin, Marijuana Adult General Chief Complaint Chief Complaint: ABDOMINAL PAIN HPI HPI Patient is a 61 year old male with an extensive medical history presents emergency department complaining of right lower quadrant pain for last one hour. He states he has never had pain summer to this. He denies any vomiting but reports some nausea. Denies any fevers or any other recent illness. Review of Systems Review of Systems Constitutional: Denies fever or chills. [] Eyes: Denies change in visual acuity. [] HENT: Denies nasal congestion or sore throat. [] Respiratory: Denies cough or shortness of breath. [] Cardiovascular: Denies chest pain or edema. [] GI: Denies abdominal pain, nausea, vomiting, bloody stools or diarrhea. [] : Denies dysuria. [] Musculoskeletal: Denies back pain or joint pain. [] Integument: Denies rash. [] Neurologic: Denies headache, focal weakness or sensory changes. [] Endocrine: Denies polyuria or polydipsia. [] Lymphatic: Denies swollen glands. [] Psychiatric: Denies depression or anxiety. [] Current Medications Current Medications Current Medications Medications (Trade) Dose Ordered Sig/John Start Time Stop Time Status Last Admin Dose Admin Hydromorphone HCl (Dilaudid) 1 mg 1X ONCE 06/22/16 18:45 06/22/16 18:46 DC 06/22/16 18:48 1 MG Ondansetron HCl 4 mg 4 mg 1X ONCE 06/22/16 18:45 06/22/16 18:46 DC 06/22/16 18:46 4 MG Sodium Chloride (Iv Sodium Chloride 0.9% 1000ml Bag) 1,000 ml @ 1,000 mls/hr Q1H 06/22/16 18:45 06/22/16 19:44 DC 06/22/16 18:49 1,000 MLS/HR Allergies Allergies Allergies Coded Allergies Type Severity Reaction Last Updated Verified No Known Drug Allergies 04/07/14 No Physical Exam Physical Exam Constitutional: Well developed, well nourished, no acute distress, non-toxic appearance. [] HENT: Normocephalic, atraumatic, bilateral external ears normal, oropharynx moist, no oral exudates, nose normal. [] Eyes: PERRLA, EOMI, conjunctiva normal, no discharge. [] Neck: Normal range of motion, no tenderness, supple, no stridor. [] Cardiovascular:Heart rate regular rhythm, no murmur [] Lungs & Thorax: Bilateral breath sounds clear to auscultation [] Abdomen: Bowel sounds normal, soft, right lower quadrant tenderness to palpation , voluntary guarding, no masses, no pulsatile masses. [] Skin: Warm, dry, no erythema, no rash. [] Back: No tenderness, no CVA tenderness. [] Extremities: No tenderness, no cyanosis, no clubbing, ROM intact, no edema. [] Neurologic: Alert and oriented X 3, normal motor function, normal sensory function, no focal deficits noted. [] Psychologic: Affect normal, judgement normal, mood normal. [] Current Patient Data Vital Signs Vital Signs Date Time Temp Pulse Resp B/P Pulse Ox O2 Delivery O2 Flow Rate FiO2 06/22/16 18:48 20 97 Room Air 06/22/16 18:24 97.8 75 208/86 97.8 Lab Values Laboratory Tests Test 06/22/16 18:20 White Blood Count 10.0x10^3/uL (4.0-11.0) Red Blood Count 3.87x10^6/uL (4.30-5.70) L Hemoglobin 12.0g/dL (13.0-17.5) L Hematocrit 37.1% (39.0-53.0) L Mean Corpuscular Volume 96fL (79-100) Mean Corpuscular Hemoglobin 31pg (25-35) Mean Corpuscular Hemoglobin Concent 32g/dL (31-37) Red Cell Distribution Width 13.9% (11.5-14.5) Platelet Count 242x10^3/uL (140-400) Neutrophils (%) (Auto) 78% (31-73) H Lymphocytes (%) (Auto) 16% (24-48) L Monocytes (%) (Auto) 5% (0-9) Eosinophils (%) (Auto) 1% (0-3) Basophils (%) (Auto) 1% (0-3) Neutrophils # (Auto) 7.8x10^3uL (1.8-7.7) H Lymphocytes # (Auto) 1.6x10^3/uL (1.0-4.8) Monocytes # (Auto) 0.5x10^3/uL (0.0-1.1) Eosinophils # (Auto) 0.1x10^3/uL (0.0-0.7) Basophils # (Auto) 0.1x10^3/uL (0.0-0.2) Sodium Level 141mmol/L (136-145) Potassium Level 4.6mmol/L (3.5-5.1) Chloride Level 105mmol/L (98-107) Carbon Dioxide Level 27mmol/L (21-32) Anion Gap 9 (6-14) Blood Urea Nitrogen 50mg/dL (8-26) H Creatinine 1.9mg/dL (0.7-1.3) H Estimated GFR (Cockcroft-Gault) 43.8 Glucose Level 321mg/dL (70-99) H Calcium Level 9.1mg/dL (8.5-10.1) Total Bilirubin 0.5mg/dL (0.2-1.0) Direct Bilirubin 0.1mg/dL (0.0-0.2) Aspartate Amino Transferase (AST) 28U/L (15-37) Alanine Aminotransferase (ALT) 39U/L (16-63) Alkaline Phosphatase 183U/L (46-116) H Total Protein 7.4g/dL (6.4-8.2) Albumin 2.9g/dL (3.4-5.0) L Lipase 335U/L (73-393) Laboratory Tests 06/22/16 18:20 Laboratory Tests 06/22/16 18:20 EKG EKG [] Radiology/Procedures Radiology/Procedures PROCEDURE CT abdomen and pelvis without contrast dated 06/22/2016. HISTORY Right lower quadrant pain for 1 hour. TECHNIQUE Contiguous axial imaging of the abdomen and pelvis performed without the administration of IV or oral contrast.Exposure: One or more of the following individualized dose reduction techniques were utilized for this exam: 1. Automated exposure control. 2. Adjustment of the mA and/or kV according to patient size. 3. Use of iterative reconstruction technique. COMPARISON 03/24/2016. FINDINGS Limited images of the lung bases show mild patchy ground-glass opacity in the lower lobes, likely atelectasis. Heart size mildly enlarged. No pleural or pericardial effusion. Solid abdominal viscera not well evaluated in the absence of contrast material. No apparent attenuation abnormality of the liver or spleen. Gallbladder is surgically absent. Pancreas, adrenal glands unremarkable. Both kidneys are symmetric in size and attenuation. There is possible 2 millimeter calcific stone at the left kidney lower pole. No ureteral stone or hydronephrosis. One opacified GI tract normal in caliber and contour. No focal bowel wall thickening. The appendix is normal in caliber. No ascites or lymphadenopathy. Urinary bladder is mildly distended. No calcific bladder stone. No free pelvic fluid or pelvic lymphadenopathy. Prostate gland upper limits of normal in size. Bone window show no acute findings. Multilevel spondylosis. IMPRESSION - No acute abnormality of abdomen or pelvis. Normal appendix. - Status post cholecystectomy. - Possible right-sided nephrolithiasis, nonobstructive. - Distended urinary bladder. Electronically signed by: Manoj Salcedo (Jun 22, 2016 19:28:28) DICTATED and SIGNED BY: MANOJ SALCEDO MD DATE: 06/22/161927 CC: RICKEY GARCÍA MD; NON,STAFF ~[] Course & Med Decision Making Course & Med Decision Making Pertinent Labs and Imaging studies reviewed. (See chart for details) Patient's pain seems to be out of proportion to his exam. However, we will give him IV fluids, pain medications, and antibiotics. We will do a full laboratory examination and CT scan to rule out appendicitis or other acute pathology for his pain. 1930 - patient is resting very comfortable in his room. I did discuss the findings of his lab work and CT scan. At this point we will discharge him home with a very small prescription of [place] as well as supportive care and follow- up instructions. [] Dragon Disclaimer Dragon Disclaimer This electronic medical record was generated, in whole or in part, using a voice recognition dictation system. RICKEY GARCÍA MD Jun 22, 2016 18:36
[2016-06-22 18:41] LABS: BASO # 0.1 x10^3/uL (0.0-0.2); BASO % 1 % (0-3); EOS % 1 % (0-3); HEMATOCRIT 37.1 % (39.0-53.0); LYMPH # 1.6 x10^3/uL (1.0-4.8); LYMPH % 16 % (24-48); MEAN CORPUSCULAR HEMOGLOBIN 31 pg (25-35); MEAN CORPUSCULAR HGB CONC 32 g/dL (31-37); MEAN CORPUSCULAR VOLUME 96 fL (79-100); MONO % 5 % (0-9); NEUT % 78 % (31-73); PLATELET COUNT 242 x10^3/uL (140-400); RED BLOOD COUNT 3.87 x10^6/uL (4.30-5.70); RED CELL DISTRIBUTION WIDTH 13.9 % (11.5-14.5)
[2016-06-22] MEDS ORDERED: IV NORMAL SALINE 1000ML BAG 1,000 ML IV SCH (18:45)
[2016-06-22] MEDS ORDERED: ONDANSETRON PF 4 MG/2 ML VIAL. IV ONE (18:45)
[2016-06-22] MEDS ORDERED: HYDROMORPHONE 2 MG/ML VIAL. IV ONE (18:45)
[2016-06-22 18:52] LABS: CALCIUM 9.1 mg/dL (8.5-10.1); CREATININE 1.9 mg/dL (0.7-1.3); GFR 43.8; POTASSIUM 4.6 mmol/L (3.5-5.1)
[2016-06-22 18:58] LABS: ALBUMIN 2.9 g/dL (3.4-5.0); DIRECT BILIRUBIN 0.1 mg/dL (0.0-0.2); TOTAL BILIRUBIN 0.5 mg/dL (0.2-1.0); TOTAL PROTEIN 7.4 g/dL (6.4-8.2)
--- NOTE | 2016-06-22 19:29 | RAD ---
PROCEDURE CT abdomen and pelvis without contrast dated 06/22/2016. HISTORY Right lower quadrant pain for 1 hour. TECHNIQUE Contiguous axial imaging of the abdomen and pelvis performed without the administration of IV or oral contrast.Exposure: One or more of the following individualized dose reduction techniques were utilized for this exam: 1. Automated exposure control. 2. Adjustment of the mA and/or kV according to patient size. 3. Use of iterative reconstruction technique. COMPARISON 03/24/2016. FINDINGS Limited images of the lung bases show mild patchy ground-glass opacity in the lower lobes, likely atelectasis. Heart size mildly enlarged. No pleural or pericardial effusion. Solid abdominal viscera not well evaluated in the absence of contrast material. No apparent attenuation abnormality of the liver or spleen. Gallbladder is surgically absent. Pancreas, adrenal glands unremarkable. Both kidneys are symmetric in size and attenuation. There is possible 2 millimeter calcific stone at the left kidney lower pole. No ureteral stone or hydronephrosis. One opacified GI tract normal in caliber and contour. No focal bowel wall thickening. The appendix is normal in caliber. No ascites or lymphadenopathy. Urinary bladder is mildly distended. No calcific bladder stone. No free pelvic fluid or pelvic lymphadenopathy. Prostate gland upper limits of normal in size. Bone window show no acute findings. Multilevel spondylosis. IMPRESSION - No acute abnormality of abdomen or pelvis. Normal appendix. - Status post cholecystectomy. - Possible right-sided nephrolithiasis, nonobstructive. - Distended urinary bladder. Electronically signed by: Manoj Salcedo (Jun 22, 2016 19:28:28)
[2016-06-22] MEDS ORDERED: ONDA4TAB10 SL (19:46)
[2016-06-22] MEDS ORDERED: HYDR-971 PO (19:46)
--- NOTE | 2016-06-22 19:51 | ACF ---
Admission Forms Criteria ABDOMINAL PAIN Clinical Indications for Admission to Inpatient Care (Place 'X' for any and all applicable criteria): Admission is indicated for ANY ONE of the following(1)(2)(3)(4)(5): [ ]I. Inpatient admission required rather than observation care (Also use Abdominal Pain: Observation Care, as appropriate) because of ANY ONE of the following: [ ]a) Severe pain requiring acute inpatient management [ ]b) Identification of etiology/finding that requires inpatient care (eg, aortic dissection, free air) [ ]c) Absent bowel sounds with complete ileus(6) [ ]d) Suspected toxic megacolon [ ]e) Severe electrolyte abnormalities requiring inpatient care [ ]f) High fever or infection requiring inpatient admission as indicated by ANY ONE of following(7)(8): [ ] i) Appropriate outpatient or observational care antimicrobial treatment unavailable, not effective, or not feasible [ ] ii) Documented bacteremia [ ] iii) Temperature > 104.9 degrees F (oral) [ ] iv) T >103.1 F (oral) or < 96.8 F(rectal) that does not respond to all emergency treatment measures [ ]g) Signs of intestinal obstruction [B] [ ]h) Hemodynamic instability [ ]i) IV fluid to replace significant ongoing losses (greater than 3 L/m2 per day) (12)(13) [ ]j) Percutaneous or open drainage (eg, abscess, biliary tract ) procedures [ ]k) Parenteral nutrition regimen that must be implemented on inpatient basis [ ]l) Other condition,treatment or monitoring requiring inpatient admission. [ ]II. Peritoneal signs present [ ]III. Surgery needed that cannot be performed on an ambulatory basis. [ ]IV. Evaluation requires patient to not eat or drink for extended period ( eg, more than 24 hours). [ ]V. Contraindications and/or Inappropriate clinical situations for Observational Care in patients with abdominal pain, when ANY ONE of the following is required: [ ]a) Thorough evaluation is required to prevent catastrophic events due to delays in diagnosing (e.g.Mesenteric ischemia) 1,3 [ ]b) Patient with severe pathology or with chronic symptoms unlikely to improve in the ED stay (3) [ ]. General contraindications and/or Inappropriate clinical situations for Observational Care in patients with abdominal pain, when ANY ONE of the following is required: [ ]a) Prediction of prolongation of LOS based on ANY ONE of the following may be considered as a contraindication for observational care 2, 3, 4, 5, 6, 7, 8, 9, 10, 11 [ ]i) Age > 65 yrs. [ ]ii) Patient arriving by ambulance [ ]iii) Patient with high acuity [ ]iv) Patient requiring vital sign monitoring [ ]v) Patient on IV medication [ ]b) Systolic blood pressures 180mmHg 3,12 [ ]c) Patient with altered mental status including delirium and other alteration of consciousness, (3) [ ]d) Patient whose discharge disposition will be to a senior care home or rehabilitation home should not be managed in Emergency Department Observation Unit. CMS rule requires 3 days hospital stay before such placement.3,13 [ ]e) Patient with failure to thrive due to broad array of etiologies 3,16,17 [ ]f) Inability to ambulate 3,14 Extended stay beyond goal length of stay may be needed for(2)(3): [ ]a) Persistent abdominal pain with suspected intra-abdominal process [ ]b) Diagnosed condition requiring continued stay (e.g., pancreatitis, complicated diverticulitis) [ ]c) Surgery (e.g., colectomy) The original [facility] content created by [employer] has been revised. The portions of the content which have been revised are identified through the use of italic text or in bold, and [facility] has neither reviewed nor approved the modified material.All other unmodified content is copyright [employer]. Please see references footnoted in the original [facility] edition 2016 GORDON BARLOW Jun 22, 2016 19:51
[2016-06-22 20:00] VITALS: BP 166/72
== END 2016-06-22 20:00 | disposition home or self-care (01) ==
LOC: ER 18:03
DX: R10.31 Right lower quadrant pain (principal); I25.10 Atherosclerotic heart disease of native coronary artery without angina pectoris; I11.0 Hypertensive heart disease with heart failure; I50.9 Heart failure, unspecified; J44.9 Chronic obstructive pulmonary disease, unspecified; E11.42 Type 2 diabetes mellitus with diabetic polyneuropathy; I25.2 Old myocardial infarction; F11.10 Opioid abuse, uncomplicated; F12.10 Cannabis abuse, uncomplicated; Z87.442 Personal history of urinary calculi; Z90.49 Acquired absence of other specified parts of digestive tract; Z95.1 Presence of aortocoronary bypass graft
CPT/HCPCS: 36415; 74176; 80048; 80076; 83690; 85027; 96361; 96374; 96375; 99285; J1170; J2405; J7030

== ENCOUNTER 2016-07-11 09:59 | Emergency (ER) | payer OTHER ==
[~2016-07-11] VITALS: Ht 172.7 cm; Wt 81.6 kg
[~2016-07-11 09:59] MED LIST changes: +HYDR-971 PO; +ONDA4TAB10 SL
[2016-07-11 10:03] VITALS: BP 192/81
--- NOTE | 2016-07-11 10:42 | PHYS DOC ---
Past Medical History Past Medical History: CAD, CHF, COPD, Diabetes-Type II, Hypertension, Kidney Stone, [place], Other Additional Past Medical Histor: Neuropathy, drug seeking behavior,iv drug use, Past Surgical History: Cholecystectomy, Coronary Bypass Surgery, Other Additional Past Surgical Histo: FEM/POP BYPASS Additional Information: 0.5 PPD Alcohol Use: None Drug Use: Heroin, Marijuana Adult General Chief Complaint Chief Complaint: FACE PROBLEM HPI HPI Patient is a 61 year old male presents emergency Department stating he's had bilateral swelling in the knees. He states that they've been feeling itching with clear drainage and discharge noted. He denies any visual difficulty. Patient does state he has history of high blood pressure. Blood pressure at this time is slightly elevated. Patient denies any fever, chills or any nausea vomiting. Patient did arrive to the apartment by way of EMS. Review of Systems Review of Systems Constitutional: Denies fever or chills [] Eyes: Denies change in visual acuity, redness, or eye pain. Bilateral watery eyes with clear drainage HENT: Denies nasal congestion or sore throat [] Respiratory: Denies cough or shortness of breath [] Cardiovascular: No additional information not addressed in HPI [] GI: Denies abdominal pain, nausea, vomiting, bloody stools or diarrhea [] : Denies dysuria or hematuria [] Musculoskeletal: Denies back pain or joint pain [] Integument: Denies rash or skin lesions [] Neurologic: Denies headache, focal weakness or sensory changes [] Allergies Allergies Allergies Coded Allergies Type Severity Reaction Last Updated Verified No Known Drug Allergies 04/07/14 No Physical Exam Physical Exam Constitutional: Well developed, well nourished, no acute distress, non-toxic appearance. [] HENT: Normocephalic, atraumatic, bilateral external ears normal, oropharynx moist, no oral exudates, nose normal. [] Eyes: PERRLA, EOMI, conjunctiva normal, clear drainage noted no redness noted in the conjunctiva. No puffiness noted or edema noted around the eyes. Neck: Normal range of motion, no tenderness, supple, no stridor. [] Cardiovascular:Heart rate regular rhythm, no murmur [] Lungs & Thorax: Bilateral breath sounds clear to auscultation [] Skin: Warm, dry, no erythema, no rash. [] Back: No tenderness Extremities: No tenderness, no cyanosis, no clubbing, ROM intact, no edema. [] Neurologic: Alert and oriented X 3, normal motor function, normal sensory function, no focal deficits noted. [] Psychologic: Affect normal, judgement normal, mood normal. [] Current Patient Data Vital Signs Vital Signs Date Time Temp Pulse Resp B/P Pulse Ox O2 Delivery O2 Flow Rate FiO2 07/11/16 10:03 98.1 69 18 192/81 98 Room Air 98.1 EKG EKG [] Radiology/Procedures Radiology/Procedures [] Course & Med Decision Making Course & Med Decision Making Pertinent Labs and Imaging studies reviewed. (See chart for details) Spoke with patient in regards to environmental allergies. Recommended Claritin or Zyrtec as directed by refuse collector. Also recommended plenty of fluids. Recommended following up with primary care physician next 7-10 days. Signs symptoms to return back to emergency department was provided. Patient agrees with discharge instructions treatment regimens and follow-up recommendations. Will be discharged home in stable condition [] Dragon Disclaimer Dragon Disclaimer This electronic medical record was generated, in whole or in part, using a voice recognition dictation system. Departure Departure Impression: Primary Impression: Environmental allergies Disposition: HOME, SELF-CARE Condition: STABLE Referrals: NON,STAFF (PCP) Patient Instructions: Allergies, Generic Additional Instructions: Home to rest Claritin or Zyrtec as prescribed by manufacture. Drink plenty of fluids Followup with primary care provider in 7-10 day Return to emergency department as needed for signs and symptoms that become worse. LA SOLIZ APRN Jul 11, 2016 10:42
== END 2016-07-11 10:59 | disposition home or self-care (01) ==
LOC: ER 09:59
DX: J30.2 Other seasonal allergic rhinitis (principal); I25.10 Atherosclerotic heart disease of native coronary artery without angina pectoris; I11.0 Hypertensive heart disease with heart failure; I50.9 Heart failure, unspecified; J44.9 Chronic obstructive pulmonary disease, unspecified; E11.40 Type 2 diabetes mellitus with diabetic neuropathy, unspecified; I25.2 Old myocardial infarction; F17.200 Nicotine dependence, unspecified, uncomplicated; F11.10 Opioid abuse, uncomplicated; F12.10 Cannabis abuse, uncomplicated; Z95.1 Presence of aortocoronary bypass graft
CPT/HCPCS: 99284

== ENCOUNTER 2016-08-05 05:04 | Emergency (ER) | payer OTHER ==
[~2016-08-05] VITALS: Ht 175.3 cm; Wt 81.6 kg
[~2016-08-05 05:04] MED LIST changes: +WARF-78 PO; -WARF3TAB PO; +WARF3TAB54 PO; -WARF5TAB PO
[2016-08-05 05:20] VITALS: BP 192/81
--- NOTE | 2016-08-05 05:25 | PHYS DOC ---
Past Medical History Past Medical History: CAD, CHF, COPD, Diabetes-Type II, Hypertension, Kidney Stone, [place], Other Additional Past Medical Histor: Neuropathy, drug seeking behavior,iv drug use, Past Surgical History: Cholecystectomy, Coronary Bypass Surgery, Other Additional Past Surgical Histo: FEM/POP BYPASS Alcohol Use: None Drug Use: Heroin, Marijuana Adult General Chief Complaint Chief Complaint: URINE CATHETER PROBLEM HPI HPI Patient is a 61 year old gentleman who presents here today secondary to dysfunctional Braxton catheter bag. Patient reports his leg bag is leaking. Patient has no other complaints. She reports his urinary bag is draining adequately. Patient's physical exam was unremarkable. He is alert awake and oriented 3. Patient's family denied difficulty. ER hospital course: Patient was evaluated with the RNs assistance and the Braxton bag was changed. Patient has no further complaints. Assessment and plan this is a 61-year-old gentleman who presents here today secondary to leaking Braxton catheter bag. No Braxton catheter bag was changed without any further incidents. Patient be discharged home in stable condition. Review of Systems Review of Systems Constitutional: Denies fever or chills [] Eyes: Denies change in visual acuity, redness, or eye pain [] All other review systems are negative except as documented in the history of present illness portion. Allergies Allergies Allergies Coded Allergies Type Severity Reaction Last Updated Verified No Known Drug Allergies 04/07/14 No Physical Exam Physical Exam Constitutional: Well developed, well nourished, no acute distress, non-toxic appearance. [] HENT: Normocephalic, atraumatic, Lungs & Thorax: No respiratory distress. Skin: Warm, dry, Neurologic: Alert and oriented Psychologic: Affect normal, EKG EKG [] Radiology/Procedures Radiology/Procedures [] Course & Med Decision Making Course & Med Decision Making Pertinent Labs and Imaging studies reviewed. (See chart for details) [] Dragon Disclaimer Dragon Disclaimer This electronic medical record was generated, in whole or in part, using a voice recognition dictation system. Departure Departure Impression: Primary Impression: Complication of Braxton catheter Disposition: HOME, SELF-CARE Condition: IMPROVED Referrals: NO PCP (PCP) Patient Instructions: Braxton Catheter Care, Adult Problem Qualifiers Primary Impression: Complication of Braxton catheter Encounter type: initial encounter Qualified Codes: T83.9XXA - Unspecified complication of genitourinary prosthetic device, implant and graft, initial encounter RAUL SIMMONS MD August 05, 2016 05:25
== END 2016-08-05 05:34 | disposition home or self-care (01) ==
LOC: ER 05:04
DX: T83.038A Leakage of other urinary catheter, initial encounter (principal); I11.0 Hypertensive heart disease with heart failure; I50.9 Heart failure, unspecified; I25.10 Atherosclerotic heart disease of native coronary artery without angina pectoris; J44.9 Chronic obstructive pulmonary disease, unspecified; E11.40 Type 2 diabetes mellitus with diabetic neuropathy, unspecified; F11.10 Opioid abuse, uncomplicated; F12.10 Cannabis abuse, uncomplicated; I25.2 Old myocardial infarction; Z95.1 Presence of aortocoronary bypass graft; Y84.6 Urinary catheterization as the cause of abnormal reaction of the patient, or of later complication, without mention of misadventure at the time of the procedure; Y92.89 Other specified places as the place of occurrence of the external cause
CPT/HCPCS: 99284

== ENCOUNTER 2016-08-09 19:24 | Emergency (ER) | payer OTHER ==
[~2016-08-09] VITALS: Ht 172.7 cm; Wt 79.4 kg
--- NOTE | 2016-08-09 19:56 | PHYS DOC ---
Past Medical History Past Medical History: CAD, CHF, COPD, Diabetes-Type II, Hypertension, Kidney Stone, [place], Other Additional Past Medical Histor: Neuropathy, drug seeking behavior,iv drug use Past Surgical History: Cholecystectomy, Coronary Bypass Surgery, Other Additional Past Surgical Histo: FEM/POP BYPASS Alcohol Use: None Drug Use: Heroin, Marijuana Adult General Chief Complaint Chief Complaint: URINE CATHETER PROBLEM [facility] HPI Patient is a 61 year old male with coulter catheter due to BPH and poorly controlled comorbidities who presents with dark color to urine. He is concerned it is blood. He denies symptoms otherwise. He denies abdominal pain , penile pain, back pain, fever or chills, nausea or vomiting, leg pain or swelling, chest pain, dyspnea. He denies decreased urine output. He is eating normal and drinking normal. Denies bloody or dark stools. Review of Systems Review of Systems Constitutional: Denies fever or chills [] Eyes: Denies change in visual acuity, redness, or eye pain [] HENT: Denies nasal congestion or sore throat [] Respiratory: Denies cough or shortness of breath [] Cardiovascular: No additional information not addressed in HPI [] GI: Denies abdominal pain, nausea, vomiting, bloody stools or diarrhea [] : Denies dysuria [] Musculoskeletal: Denies back pain or joint pain [] Integument: Denies rash or skin lesions [] Neurologic: Denies headache, focal weakness or sensory changes [] Endocrine: Denies polyuria or polydipsia [] Allergies Allergies Allergies Coded Allergies Type Severity Reaction Last Updated Verified No Known Drug Allergies 04/07/14 No Physical Exam Physical Exam Constitutional: Well developed, well nourished, no acute distress, non-toxic appearance. [] HENT: Normocephalic, atraumatic, bilateral external ears normal, oropharynx moist, nose normal. [] Eyes: PERRLA, EOMI. [] Neck: Normal range of motion, supple. [] Cardiovascular:Heart rate regular rhythm [] Lungs & Thorax: Bilateral breath sounds clear to auscultation [] Abdomen: Bowel sounds normal, soft, no tenderness. [] Genitourinary: coulter catheter in place with no evidence of bleeding; has dark zena color urine in bag Skin: Warm, dry, no erythema, no rash. [] Back: No tenderness, no CVA tenderness. [] Extremities: No tenderness, ROM intact, bilateral 1+ lower extremity edema. [] Neurologic: Alert and oriented X 3, normal motor function, normal sensory function, no focal deficits noted. [] Psychologic: Affect normal, judgement normal, mood normal. [] Current Patient Data Vital Signs Vital Signs Date Time Temp Pulse Resp B/P (MAP) Pulse Ox O2 Delivery O2 Flow Rate FiO2 08/09/16 19:30 98.4 84 16 96 Room Air 98.4 Lab Values Laboratory Tests Test 08/09/16 20:32 Sodium Level 143 mmol/L (136-145) Potassium Level 4.3 mmol/L (3.5-5.1) Chloride Level 106 mmol/L (98-107) Carbon Dioxide Level 30 mmol/L (21-32) Anion Gap 7 (6-14) Blood Urea Nitrogen 37 mg/dL (8-26) H Creatinine 1.7 mg/dL (0.7-1.3) H Estimated GFR (Cockcroft-Gault) 49.8 Glucose Level 257 mg/dL (70-99) H Calcium Level 8.7 mg/dL (8.5-10.1) Creatine Kinase 173 U/L (39-308) Laboratory Tests 08/09/16 20:32 Course & Med Decision Making Course & Med Decision Making Pertinent Labs and Imaging studies reviewed. (See chart for details) Laboratory evaluation is unremarkable. Encouraged him to take home blood pressure medications for chronically uncontrolled HTN. Return precautions given. He understands and agrees with plan. Dragon Disclaimer Dragon Disclaimer This electronic medical record was generated, in whole or in part, using a voice recognition dictation system. Departure Departure Impression: Primary Impression: Dark urine Additional Impressions: Essential hypertension Chronic renal disease, stage 3, moderately decreased glomerular filtration rate between 30-59 mL/min/1.73 square meter Disposition: 01 HOME, SELF-CARE Condition: STABLE Referrals: NO PCP (PCP) Patient Instructions: Medical Screening Exam Additional Instructions: Follow up with your primary care doctor and Urologist. Please call for appointment. Return for any concerns. Problem Qualifiers Gianfranco HASSAN MD August 09, 2016 19:56
[2016-08-09 21:05] LABS: CALCIUM 8.7 mg/dL (8.5-10.1); CREATININE 1.7 mg/dL (0.7-1.3); GFR 49.8; POTASSIUM 4.3 mmol/L (3.5-5.1)
[2016-08-09 21:07] VITALS: BP 235/100
== END 2016-08-09 21:20 | disposition home or self-care (01) ==
LOC: ER 19:24
DX: I12.9 Hypertensive chronic kidney disease with stage 1 through stage 4 chronic kidney disease, or unspecified chronic kidney disease (principal); N18.3 Chronic kidney disease, stage 3 (moderate); I25.10 Atherosclerotic heart disease of native coronary artery without angina pectoris; J44.9 Chronic obstructive pulmonary disease, unspecified; I11.0 Hypertensive heart disease with heart failure; I50.9 Heart failure, unspecified; I25.2 Old myocardial infarction; F11.10 Opioid abuse, uncomplicated; F12.10 Cannabis abuse, uncomplicated; E11.40 Type 2 diabetes mellitus with diabetic neuropathy, unspecified; E11.22 Type 2 diabetes mellitus with diabetic chronic kidney disease; Z95.1 Presence of aortocoronary bypass graft
CPT/HCPCS: 36415; 80048; 82550; 99284

== ENCOUNTER 2016-08-17 22:36 | Emergency (ER) | payer OTHER ==
[~2016-08-17] VITALS: Ht 172.7 cm; Wt 79.4 kg
[2016-08-18] VITALS: BP 188/84
--- NOTE | 2016-08-18 00:56 | PHYS DOC ---
Past Medical History Past Medical History: CAD, CHF, COPD, Diabetes-Type II, Hypertension, Kidney Stone, [place], Other Additional Past Medical Histor: Neuropathy, drug seeking behavior,iv drug use Past Surgical History: Cholecystectomy, Coronary Bypass Surgery, Other Additional Past Surgical Histo: FEM/POP BYPASS Alcohol Use: None Drug Use: Heroin, Marijuana Adult General Chief Complaint Chief Complaint: URINARY RETENTION HPI HPI Patient is a 61 year old male who presents with complaint of urinary hesitancy and possible urinary retention. Patient states his symptoms have been present throughout the day. Patient states that he has been having increased frequency of urination and states that he has only been producing small amounts of urine. Patient states he's had history of urinary retention and had to have a Braxton catheter placed in the past. Patient denies any fevers or other symptoms at this time. Patient denies any recent unprotected sexual intercourse and states he has low suspicion for possible sexually transmitted infection. Review of Systems Review of Systems Constitutional: Denies fever or chills [] Eyes: Denies change in visual acuity, redness, or eye pain [] HENT: Denies nasal congestion or sore throat [] Respiratory: Denies cough or shortness of breath [] Cardiovascular: Denies chest pain or edema [] GI: Denies abdominal pain, nausea, vomiting, bloody stools or diarrhea [] : Increased urinary frequency, hesitancy, dysuria [] Musculoskeletal: Denies back pain or joint pain [] Integument: Denies rash or skin lesions [] Neurologic: Denies headache, focal weakness or sensory changes [] Allergies Allergies Allergies Coded Allergies Type Severity Reaction Last Updated Verified No Known Drug Allergies 04/07/14 No Physical Exam Physical Exam Constitutional: Alert, afebrile, no acute distress. [] HENT: Normocephalic, atraumatic, bilateral external ears normal, oropharynx moist, no oral exudates, nose normal. [] Eyes: PERRLA, EOMI, conjunctiva normal, no discharge. [] Neck: Normal range of motion, no tenderness, supple, no stridor. [] Cardiovascular:Heart rate regular rhythm, no murmur [] Lungs & Thorax: Bilateral breath sounds clear to auscultation [] Abdomen: Bowel sounds normal, soft, no tenderness, no masses, no pulsatile masses. [] Skin: Warm, dry, no erythema, no rash. [] Back: No tenderness, no CVA tenderness. [] Extremities: No tenderness, no cyanosis, no clubbing, ROM intact, no edema. [] Neurologic: Alert and oriented X 3, normal motor function, normal sensory function, no focal deficits noted. [] Current Patient Data Vital Signs Vital Signs Date Time Temp Pulse Resp B/P (MAP) Pulse Ox O2 Delivery O2 Flow Rate FiO2 08/18/16 00:00 77 18 08/17/16 22:40 98.7 235/100 (145) 98 Room Air 98.7 Lab Values Laboratory Tests Test 08/18/16 01:40 Urine Collection Type Unknown Urine Color Yellow Urine Clarity Clear Urine pH 6.0 Urine Specific [place] 1.020 Urine Protein >=300 mg/dL (NEG-TRACE) Urine Glucose (UA) 500 mg/dL (NEG) Urine Ketones (Stick) Negative mg/dL (NEG) Urine Blood Trace (NEG) Urine Nitrite Negative (NEG) Urine Bilirubin Negative (NEG) Urine Urobilinogen Dipstick 0.2 mg/dL (0.2 mg/dL) Urine Leukocyte Esterase Negative (NEG) Urine RBC Occ /HPF (0-2) Urine WBC Occ /HPF (0-4) Urine Squamous Epithelial Cells Occ /LPF Urine Bacteria 0 /HPF (0-FEW) Urine Hyaline Casts Occasional /HPF Urine Mucus Slight /LPF EKG EKG Not performed [] Radiology/Procedures Radiology/Procedures Not performed [] Course & Med Decision Making Course & Med Decision Making Pertinent Labs and Imaging studies reviewed. (See chart for details) Patient's UA did not show evidence of urinary tract infection. Patient's symptoms are consistent with mild to moderate benign prostatic hyperplasia. The patient states that he is not currently taking Flomax. The patient will be given prescription for Flomax. Recommended follow-up with primary doctor in 3-4 days. Advised return emergency department for any worsening symptoms. Patient voiced understanding and in agreement with treatment plan. Dragon Disclaimer Dragon Disclaimer This electronic medical record was generated, in whole or in part, using a voice recognition dictation system. Departure Departure Impression: Primary Impression: BPH (benign prostatic hyperplasia) Disposition: HOME, SELF-CARE Condition: IMPROVED Referrals: NO PCP (PCP) Patient Instructions: Benign Prostatic Hyperplasia Additional Instructions: Follow-up to primary doctor in 3 days for reevaluation. Return to the emergency department for any worsening symptoms. Scripts Tamsulosin Hcl (FLOMAX) 0.4 Mg Cap.er.24h 1 CAP PO DAILY, #30 CAP 0 Refills Prov: LUCIEN KERR MD 08/18/16 Problem Qualifiers Primary Impression: BPH (benign prostatic hyperplasia) Prostatic enlargement morphology: unspecified morphology Lower urinary tract symptom presence: symptoms present Qualified Codes: N40.1 - Benign prostatic hyperplasia with lower urinary tract symptoms LUCIEN KERR MD August 18, 2016 00:56
[2016-08-18 02:22] LABS: BILIRUBIN,URINE NEGATIVE (NEG); GLUCOSE,URINE 500 mg/dL (NEG); NITRITE,URINE NEGATIVE (NEG); PROTEIN,URINE >=300 mg/dL (NEG-TRACE); UROBILINOGEN,URINE 0.2 mg/dL (0.2 mg/dL)
[2016-08-18 02:33] LABS: RBC,URINE OCC /HPF (0-2)
[2016-08-18 02:34] LABS: BACTERIA,URINE 0 /HPF (0-FEW); SQUAMOUS EPITHELIAL CELL,UR OCC /LPF; WBC,URINE OCC /HPF (0-4)
[2016-08-18] MEDS ORDERED: TAMS0.4C97 PO (03:13)
== END 2016-08-18 03:39 | disposition home or self-care (01) ==
LOC: ER 22:36
DX: N40.1 Benign prostatic hyperplasia with lower urinary tract symptoms (principal); I11.0 Hypertensive heart disease with heart failure; I50.9 Heart failure, unspecified; E11.40 Type 2 diabetes mellitus with diabetic neuropathy, unspecified; I25.10 Atherosclerotic heart disease of native coronary artery without angina pectoris; J44.9 Chronic obstructive pulmonary disease, unspecified; Z87.442 Personal history of urinary calculi; I25.2 Old myocardial infarction; F11.10 Opioid abuse, uncomplicated; F12.10 Cannabis abuse, uncomplicated; Z90.49 Acquired absence of other specified parts of digestive tract; Z95.1 Presence of aortocoronary bypass graft; Z76.5 Malingerer [conscious simulation]
CPT/HCPCS: 81001; 99284

== ENCOUNTER 2016-10-30 20:46 | Emergency (ER) | payer OTHER ==
[~2016-10-30] VITALS: Ht 182.9 cm; Wt 79.4 kg
[~2016-10-30 20:46] MED LIST changes: +ASPI-612 PO; +ASPI-630 PO; -ASPI81TA2 PO; -ASPI81TA9 PO; -ISOS30TA17 PO; +ISOS30TA19 PO; -OXYC-250 PO; +OXYC-328 PO; -OXYC10TA32 PO; +OXYC10TA45 PO
[2016-10-30] MEDS ORDERED: BISACODYL 5 MG TABLET.DR. PO PRN (22:00)
[2016-10-30] MEDS ORDERED: BISACODYL 10 MG SUPP.RECT. PR ONE (22:00)
[2016-10-30] MEDS ORDERED: MAGNESIUM CITRATE 296 ML SOLUTION. PO ONE (22:00)
[2016-10-30] MEDS ORDERED: ACETAMINOPHEN 325 MG TABLET. PO ONE (23:30)
[2016-10-31] MEDS ORDERED: SODIUM PHOSPHATES 19/7GM 133 ML ENEMA. PR ONE
[2016-10-31] MEDS ORDERED: HYDROmorphone 2 MG/ML VIAL IV ONE
[2016-10-31 01:28] VITALS: BP 152/68
[2016-10-31] MEDS ORDERED: MAGN296S9 PO (01:49)
[2016-10-31] MEDS ORDERED: BISA-42 PO (01:49)
--- NOTE | 2016-10-31 01:49 | PHYS DOC ---
Past Medical History Past Medical History: CAD, CHF, COPD, Diabetes-Type II, Hypertension, Kidney Stone, [place], Other Additional Past Medical Histor: Neuropathy, drug seeking behavior,iv drug use Past Surgical History: Cholecystectomy, Coronary Bypass Surgery, Other Additional Past Surgical Histo: FEM/POP BYPASS Alcohol Use: None Drug Use: Heroin, Marijuana Social History Narrative: iv drug use Adult General Chief Complaint Chief Complaint: GI PROBLEM HPI HPI Patient is a 61 year old [f__sex] who presents with [] Review of Systems Review of Systems Constitutional: Denies fever or chills [] Eyes: Denies change in visual acuity, redness, or eye pain [] HENT: Denies nasal congestion or sore throat [] Respiratory: Denies cough or shortness of breath [] Cardiovascular: No additional information not addressed in HPI [] GI: Denies abdominal pain, nausea, vomiting, bloody stools or diarrhea [] : Denies dysuria or hematuria [] Musculoskeletal: Denies back pain or joint pain [] Integument: Denies rash or skin lesions [] Neurologic: Denies headache, focal weakness or sensory changes [] Endocrine: Denies polyuria or polydipsia [] Current Medications Current Medications Current Medications Medications (Trade) Dose Ordered Sig/John Start Time Stop Time Status Last Admin Dose Admin Acetaminophen (Tylenol) 650 mg 1X ONCE 10/30/16 23:30 10/30/16 23:44 DC 10/30/16 23:30 650 MG Bisacodyl (Dulcolax Supp) 20 mg 1X ONCE 10/30/16 22:00 10/30/16 22:01 DC 10/30/16 22:00 20 MG Bisacodyl (Dulcolax Tab) 20 mg PRN DAILY PRN 10/30/16 22:00 10/30/16 23:00 DC Hydromorphone HCl (Dilaudid) 1 mg 1X ONCE 10/31/16 00:00 10/31/16 00:01 DC Magnesium Citrate (Citroma) 296 ml 1X ONCE 10/30/16 22:00 10/30/16 22:01 DC 10/30/16 22:00 296 ML Sodium Monofluorophosphate (Fleet Adult) 133 ml 1X ONCE 10/31/16 00:00 10/31/16 00:01 DC 10/31/16 00:50 133 ML Allergies Allergies Allergies Coded Allergies Type Severity Reaction Last Updated Verified No Known Drug Allergies 04/07/14 No Physical Exam Physical Exam Constitutional: Well developed, well nourished, no acute distress, non-toxic appearance. [] HENT: Normocephalic, atraumatic, bilateral external ears normal, oropharynx moist, no oral exudates, nose normal. [] Eyes: PERRLA, EOMI, conjunctiva normal, no discharge. [] Neck: Normal range of motion, no tenderness, supple, no stridor. [] Cardiovascular:Heart rate regular rhythm, no murmur [] Lungs & Thorax: Bilateral breath sounds clear to auscultation [] Abdomen: Bowel sounds normal, soft, no tenderness, no masses, no pulsatile masses. [] Skin: Warm, dry, no erythema, no rash. [] Back: No tenderness, no CVA tenderness. [] Extremities: No tenderness, no cyanosis, no clubbing, ROM intact, no edema. [] Neurologic: Alert and oriented X 3, normal motor function, normal sensory function, no focal deficits noted. [] Psychologic: Affect normal, judgement normal, mood normal. [] Current Patient Data Vital Signs Vital Signs Date Time Temp Pulse Resp B/P (MAP) Pulse Ox O2 Delivery O2 Flow Rate FiO2 10/31/16 01:28 98 20 152/68 (96) 94 Room Air 10/31/16 00:27 98.0 98.0 EKG EKG [] Radiology/Procedures Radiology/Procedures [] Course & Med Decision Making Course & Med Decision Making Pertinent Labs and Imaging studies reviewed. (See chart for details) [] Dragon Disclaimer Dragon Disclaimer This electronic medical record was generated, in whole or in part, using a voice recognition dictation system. Departure Departure Impression: Primary Impression: Abdominal pain Additional Impression: Constipation Disposition: HOME, SELF-CARE Condition: IMPROVED Referrals: NO PCP (PCP) Patient Instructions: Chronic Pain, Constipation, Adult Scripts Bisacodyl (DULCOLAX) 5 Mg Tablet.dr 5 MG PO PRN QID Y for CONSTIPATION, #14 TAB 0 Refills Prov: RAUL SIMMONS MD 10/31/16 Magnesium Citrate (MAGNESIUM CITRATE) 296 Ml Solution 296 ML PO ONCE, #296 ML 2 Refills Prov: RAUL SIMMONS MD 10/31/16 Problem Qualifiers RAUL SIMMONS MD Oct 31, 2016 01:49
[2016-10-31] MEDS ORDERED: HYDROmorphone 2 MG/ML VIAL IM ONE (02:00)
--- NOTE | 2016-10-31 07:59 | RAD ---
Indication constipation. Abdominal pain. A single view of the chest as well as flat and upright films of the abdomen were obtained. Comparison is made to a similar series of films April 04, 2014. Postoperative changes are noted. There are interstitial changes in the lungs similar to the previous exam likely reflecting fibrosis. There is no focal consolidated pneumonia significant pleural fluid collection or pneumothorax. There is no free air. The abdominal gas pattern has a nonobstructive appearance. Moderate amount of stool is noted in the transverse and rectosigmoid colon. Moderately extensive vascular calcification is noted. IMPRESSION: No acute finding seen in the chest or abdomen on plain films. Chronic changes, likely reflecting fibrosis, in the chest. Mild enlargement of the cardiac silhouette, stable. Moderate amount of stool in the transverse and rectosigmoid colon
== END 2016-10-31 02:02 | disposition home or self-care (01) ==
LOC: ER 20:46
DX: K59.00 Constipation, unspecified (principal); I25.10 Atherosclerotic heart disease of native coronary artery without angina pectoris; I11.0 Hypertensive heart disease with heart failure; I50.9 Heart failure, unspecified; J44.9 Chronic obstructive pulmonary disease, unspecified; E11.40 Type 2 diabetes mellitus with diabetic neuropathy, unspecified; I25.2 Old myocardial infarction; Z90.49 Acquired absence of other specified parts of digestive tract; Z95.1 Presence of aortocoronary bypass graft
CPT/HCPCS: 74022; 96372; 99284; J1170

== ENCOUNTER 2016-12-21 02:30 | Inpatient (IN) | payer OTHER ==
[~2016-12-21] VITALS: Ht 172.7 cm; Wt 91.6 kg
[~2016-12-21 02:30] MED LIST changes: +MAGN296S9 PO; -NAPR250T2 PO; +NAPR250T6 PO; -OXYC5TAB PO; +OXYC5TAB95 PO
[2016-12-21] MEDS ORDERED: IPRATRPIUM/ALBUTEROL 0.5/2.5MG 3 ML NEBU. ONE (02:57)
--- NOTE | 2016-12-21 03:04 | EKG ---
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
[2016-12-21] MEDS ORDERED: IPRATRPIUM/ALBUTEROL 0.5/2.5MG 3 ML NEBU. NEB ONE (03:15)
--- NOTE | 2016-12-21 03:20 | PHYS DOC ---
Past Medical History Past Medical History: CAD, CHF, COPD, Diabetes-Type II, Hypertension, Kidney Stone, CT, Other Additional Past Medical Histor: Neuropathy, drug seeking behavior,iv drug use Past Surgical History: Cholecystectomy, Coronary Bypass Surgery, Other Additional Past Surgical Histo: FEM/POP BYPASS Alcohol Use: None Drug Use: Heroin, Marijuana Adult General Chief Complaint Chief Complaint: SHORTNESS OF BREATH HPI HPI Patient is a 61 year old male presents with complaints of of shortness of air. Patient was also states she's been having a cough that is nonproductive. Patient states he has been compliant with his medication regimen and has not had any recent changes in medication. Patient is having diffuse pains that are chronic in nature no new pain today. Review of Systems Review of Systems Constitutional: Denies fever, yes to chills Eyes: Denies change in visual acuity, redness, or eye pain [] HENT: Denies nasal congestion or sore throat, yes to cough Respiratory: Yes cough and shortness of breath [] Cardiovascular: No chest pain GI: Denies abdominal pain, nausea, vomiting, bloody stools or diarrhea [] : Denies dysuria or hematuria [] Musculoskeletal: Diffuse muscle aches Integument: Denies rash or skin lesions [] Neurologic: Denies headache, focal weakness or sensory changes [] Current Medications Current Medications Current Medications Medications (Trade) Dose Ordered Sig/John Start Time Stop Time Status Last Admin Dose Admin Albuterol/ Ipratropium (Duoneb) 3 ml 1X ONCE 12/21/16 03:15 12/21/16 03:22 DC 12/21/16 03:15 3 ML Furosemide (Lasix) 40 mg 1X ONCE 12/21/16 04:15 12/21/16 04:16 UNV Labetalol HCl (Normodyne) 20 mg 1X ONCE 12/21/16 03:30 12/21/16 03:31 DC 12/21/16 03:36 20 MG Allergies Allergies Allergies Coded Allergies Type Severity Reaction Last Updated Verified No Known Drug Allergies 04/07/14 No Physical Exam Physical Exam Constitutional: Well developed, well nourished, mild distress, non-toxic appearance. [] HENT: Normocephalic, atraumatic, , oropharynx moist, no oral exudates, nose normal. [] Eyes: EOMI, conjunctiva normal, no discharge. [] Neck: Normal range of motion, no tenderness, supple, no stridor. No LAD, no meningeal signs Cardiovascular:Heart rate regular rhythm, no murmur, equal pulses, normal perfusion. All midsternal scar well healed no signs of infection Lungs & Thorax: Mild tachypnea, decreased air movement bilaterally Abdomen: Bowel sounds normal, soft, mild diffuse tenderness without guarding or rebound, no masses, no pulsatile masses. [] Skin: Warm, dry, no erythema, no rash. [] Back: Diffuse tenderness, no CVA tenderness. [] Extremities: No tenderness, no cyanosis, no DVT, ROM intact, no edema. [] Neurologic: Alert and oriented X 3, normal motor function, , no focal deficits noted. [] Psychologic: Affect normal, judgement normal, mood normal. [] Current Patient Data Vital Signs Vital Signs Date Time Temp Pulse Resp B/P (MAP) Pulse Ox O2 Delivery O2 Flow Rate FiO2 12/21/16 03:36 75 214/130 12/21/16 03:08 97 Nasal Cannula 2.0 12/21/16 02:38 97.9 22 97.9 Lab Values Laboratory Tests Test 12/21/16 03:20 White Blood Count 10.2 x10^3/uL (4.0-11.0) Red Blood Count 4.15 x10^6/uL (4.30-5.70) L Hemoglobin 12.7 g/dL (13.0-17.5) L Hematocrit 39.3 % (39.0-53.0) Mean Corpuscular Volume 95 fL (79-100) Mean Corpuscular Hemoglobin 31 pg (25-35) Mean Corpuscular Hemoglobin Concent 32 g/dL (31-37) Red Cell Distribution Width 13.2 % (11.5-14.5) Platelet Count 209 x10^3/uL (140-400) Neutrophils (%) (Auto) 71 % (31-73) Lymphocytes (%) (Auto) 19 % (24-48) L Monocytes (%) (Auto) 7 % (0-9) Eosinophils (%) (Auto) 2 % (0-3) Basophils (%) (Auto) 1 % (0-3) Neutrophils # (Auto) 7.3 x10^3uL (1.8-7.7) Lymphocytes # (Auto) 2.0 x10^3/uL (1.0-4.8) Monocytes # (Auto) 0.7 x10^3/uL (0.0-1.1) Eosinophils # (Auto) 0.2 x10^3/uL (0.0-0.7) Basophils # (Auto) 0.1 x10^3/uL (0.0-0.2) Sodium Level 142 mmol/L (136-145) Potassium Level 3.4 mmol/L (3.5-5.1) L Chloride Level 107 mmol/L (98-107) Carbon Dioxide Level 28 mmol/L (21-32) Anion Gap 7 (6-14) Blood Urea Nitrogen 24 mg/dL (8-26) Creatinine 1.6 mg/dL (0.7-1.3) H Estimated GFR (Cockcroft-Gault) 53.4 Glucose Level 167 mg/dL (70-99) H Calcium Level 8.3 mg/dL (8.5-10.1) L Magnesium Level 2.0 mg/dL (1.8-2.4) Total Bilirubin 0.4 mg/dL (0.2-1.0) Direct Bilirubin 0.1 mg/dL (0.0-0.2) Aspartate Amino Transferase (AST) 24 U/L (15-37) Alanine Aminotransferase (ALT) 19 U/L (16-63) Alkaline Phosphatase 164 U/L (46-116) H Troponin I Quantitative 0.039 ng/mL (0.000-0.055) JS-Vjm-A-Type Natriuretic Peptide 5940 pg/mL (0-124) H Total Protein 5.7 g/dL (6.4-8.2) L Albumin 1.8 g/dL (3.4-5.0) L Laboratory Tests 12/21/16 03:20 Laboratory Tests 12/21/16 03:20 EKG EKG 0301 78, sinus rhythm, no STEMI, LVH[] Radiology/Procedures Radiology/Procedures CXR: cardiomegaly, pulmonary congestion[] Course & Med Decision Making Course & Med Decision Making Pertinent Labs and Imaging studies reviewed. (See chart for details) [] Dragon Disclaimer Dragon Disclaimer This electronic medical record was generated, in whole or in part, using a voice recognition dictation system. Departure Departure Impression: Primary Impression: Acute CHF Additional Impression: Uncontrolled hypertension Disposition: ADMITTED INPATIENT Admitting Physician: Candi Garrett Condition: STABLE Referrals: NO PCP (PCP) Problem Qualifiers Bryan STARK MD Dec 21, 2016 03:19
[2016-12-21] MEDS ORDERED: LABETALOL 20 MG/4 ML DISP.SYRIN. IVP ONE ×2 (03:30→05:00)
[2016-12-21 03:32] LABS: BASO # 0.1 x10^3/uL (0.0-0.2); BASO % 1 % (0-3); EOS % 2 % (0-3); HEMATOCRIT 39.3 % (39.0-53.0); HEMOGLOBIN 12.7 g/dL (13.0-17.5); LYMPH % 19 % (24-48); MEAN CORPUSCULAR HEMOGLOBIN 31 pg (25-35); MEAN CORPUSCULAR HGB CONC 32 g/dL (31-37); MEAN CORPUSCULAR VOLUME 95 fL (79-100); MONO % 7 % (0-9); NEUT % 71 % (31-73); PLATELET COUNT 209 x10^3/uL (140-400); RED BLOOD COUNT 4.15 x10^6/uL (4.30-5.70); RED CELL DISTRIBUTION WIDTH 13.2 % (11.5-14.5); WHITE BLOOD COUNT 10.2 x10^3/uL (4.0-11.0)
[2016-12-21 03:47] LABS: CALCIUM 8.3 mg/dL (8.5-10.1); CREATININE 1.6 mg/dL (0.7-1.3); GFR 53.4; POTASSIUM 3.4 mmol/L (3.5-5.1)
[2016-12-21 03:51] LABS: ALBUMIN 1.8 g/dL (3.4-5.0); DIRECT BILIRUBIN 0.1 mg/dL (0.0-0.2); TOTAL BILIRUBIN 0.4 mg/dL (0.2-1.0); TOTAL PROTEIN 5.7 g/dL (6.4-8.2)
[2016-12-21] MEDS ORDERED: ONDANSETRON PF 4 MG/2 ML VIAL. IV PRN (04:30)
[2016-12-21] MEDS ORDERED: FUROSEMIDE 40 MG/4 ML VIAL. IVP ONE (04:30)
[2016-12-21] MEDS ORDERED: MORPHINE SULFATE 4 MG/ML DISP.SYRIN. IV ONE (05:00)
[2016-12-21] MEDS ORDERED: hydrALAZINE 20 MG/ML VIAL. IVP ONE (05:30)
[2016-12-21 05:52] VITALS: BP 118/73
[2016-12-21 06:57] VITALS: BP 174/68
--- NOTE | 2016-12-21 07:37 | RAD ---
AP chest. History: Dyspnea AP view was taken of the chest. The heart is enlarged. There is mild vascular congestion. The patient's hand obscures the left lung base. There are no confluent areas of infiltrate. Impression: 1. Cardiomegaly. 2. Mild vascular congestion.
[2016-12-21] MEDS: MORPHINE SULFATE 4 MG/ML DISP.SYRIN. IV PRN ×3 (07:53→19:47)
[2016-12-21] MEDS ORDERED: DEXTROSE 50% 25 GM / 50ML DISP.SYRIN. IV PRN (08:45)
[2016-12-21] MEDS: INSULIN ASPART 300 UNITS/3 ML INSULN.PEN SQ SCH ×3 (09:02→16:12)
[2016-12-21] MEDS ORDERED: POTASSIUM CHLORIDE 20 MEQ TABLET.ER. PO ONE (10:00)
[2016-12-21 11:09] VITALS: BP 166/59
[2016-12-21] MEDS: BUMETANIDE 1 MG/4 ML VIAL. IV SCH ×2 (11:14→16:18)
[2016-12-21] MEDS ORDERED: POTASSIUM CHLORIDE 20 MEQ/15 ML ORAL LIQUID. PEG ONE (11:15)
[2016-12-21] MEDS: CARVEDILOL 12.5 MG TABLET. PO SCH ×2 (11:15→16:18)
[2016-12-21] MEDS: ISOSORBIDE MONONITRATE ER 30 MG TAB.ER.24H PO SCH (11:15)
--- NOTE | 2016-12-21 11:35 | CONS ---
DATE OF CONSULTATION: 12/21/2016 REASON FOR CONSULTATION: Heart failure. HISTORY OF PRESENT ILLNESS: The patient is a 61-year-old male with significant past medical history as noted below, who presented to the ER in the setting of chest pain and fatigue over the course of the last several weeks. He reports compliance with his medications, but it is unclear if he is actually taking them because he does not recall the doses nor the actual medications he has been supposedly compliant with. Today upon interview, he appears to be somnolent but arousable, and denies any active chest pain at the moment. He at baseline describes NYHA functional class 2-3 symptoms. He denies any syncope or palpitations. PAST MEDICAL HISTORY: 1. Coronary artery disease, status post bypass with previous cardiac catheterization demonstrating 2 patent bypass grafts with occluded vessels to the right side. 2. Hypertension. 3. Systolic heart failure with an ejection fraction of 30%. 4. Dyslipidemia. 5. Mild renal insufficiency with a creatinine 1.6. SOCIAL HISTORY: The patient denies any illicit drug use, but does report that he smokes and drinks alcohol. FAMILY HISTORY: Noncontributory. ALLERGIES: No known drug allergies. CARDIOVASCULAR MEDICATIONS: Unknown, but previously he was on multiple medications including carvedilol, statins, Imdur, doxazosin, hydralazine as well as aspirin and Plavix. REVIEW OF SYSTEMS: Negative for 10 out of 14 systems reviewed, unless otherwise mentioned above in HPI. PHYSICAL EXAMINATION: VITAL SIGNS: Stable, notable for hypertension, with systolic blood pressure of over 170. GENERAL: He is somnolent but easily arousable. HEAD AND NECK: Unremarkable. Neck veins are distended. HEART: Heart sounds, regular rate and rhythm, without any murmurs, rubs, gallops or S3's. LUNGS: Decreased with breath sounds bilaterally. ABDOMEN: Soft, nontender, nondistended. EXTREMITIES: No clubbing, cyanosis or edema, but he does have bilateral lower extremity swelling with chronic venous stasis changes and dryness. MUSCULOSKELETAL: No trauma. LABORATORY DATA: His troponin is 0.039, BNP 5940, his potassium was 3.4. With hemoglobin of 12.7 and platelet count 209. IMAGING DATA: Chest x-ray reveals bilateral mild vascular congestion. Echocardiogram previously demonstrates LV systolic dysfunction with ejection fraction of 30%. Previous cardiac catheterization has demonstrated a severe redding 3-vessel coronary artery disease with 2 out of 3 bypass grafts patent. IMPRESSION: 1. Acute on chronic systolic and diastolic heart failure. 2. Atypical chest pain in the setting of prior coronary artery disease. 3. Hypertension. 4. Presumed medication noncompliance. 5. Dyslipidemia. 6. Chronic kidney disease. RECOMMENDATIONS: We will reinitiate the patient on his presumed home medication list, at least with carvedilol, Imdur and diuretic therapy. After this, we will also obtain a urinalysis to rule out any drug abuse issues. Subsequently, reinitiate other home medications as blood pressure, diuresis as well as renal function allow. Thank you for this consultation. SOLEDAD SHAW MD DR: OMER/nts JOB#: [id number] / [id number]
--- NOTE | 2016-12-21 12:35 | HP ---
ADMIT DATE: 12/21/2016 CHIEF COMPLAINT: Shortness of breath. HISTORY OF PRESENT ILLNESS: The patient is a pleasant 61-year-old male, well known to our service. He has multiple comorbidities. He used to do drugs as well including cocaine, but he quit 7 years ago. Now, he presents with shortness of breath. He has heart failure. Chest x-ray is showing vascular congestion and his BNP level is high. We are going to admit the patient and consult Cardiology. PAST MEDICAL HISTORY: Coronary artery disease, congestive heart failure, chronic obstructive pulmonary disease, diabetes, hypertension, kidney stones, neuropathy, possible narcotic dependence, cholecystectomy, coronary artery bypass grafting, fem-pop bypass. ALLERGIES: None. FAMILY HISTORY: Diabetes. SOCIAL HISTORY: Does not drink, smoke or take drugs. MEDICATIONS: Reviewed. REVIEW OF SYSTEMS: GENERAL: No history of weight change, weakness or fevers. SKIN: No bruising, hair changes or rashes. EYES: No blurred, double or loss of vision. NOSE AND THROAT: No history of nosebleeds, hoarseness or sore throat. HEART: No history of palpitations, chest pain or shortness of breath on exertion. LUNGS: He complains of shortness of breath. GASTROINTESTINAL: Denies changes in appetite, nausea, vomiting, diarrhea or constipation. GENITOURINARY: No history of frequency, urgency, hesitancy or nocturia. NEUROLOGIC: Denies history of numbness, tingling, tremor or weakness. PSYCHIATRIC: No history of panic, anxiety or depression. ENDOCRINE: No history of heat or cold intolerance, polyuria or polydipsia. EXTREMITIES: Denies muscle weakness, joint pain, pain on walking or stiffness. PHYSICAL EXAMINATION: VITAL SIGNS: Temperature afebrile, pulse 97, respirations 18, blood pressure 113/67, O2 sat 94% on 2 liters. GENERAL: He is alert, cooperative. HEART: Normal S1, S2 with soft S3. LUNGS: Slight crackles. ABDOMEN: Soft, slightly distended. EXTREMITIES: 1+ edema. SKIN: No rashes. PSYCHIATRIC: He is a little anxious. VASCULAR: Good capillary refill. ENDOCRINE: No thyromegaly. LYMPHATICS: No cervical nodes. HEMATOPOIETIC: No bruising. LABORATORY DATA: White count 10, hemoglobin 12, platelets 209. Electrolytes pending. BNP is high at 5940. Troponin 0.039. Chest x-ray shows vascular congestion. ASSESSMENT AND PLAN: Acute on chronic systolic and diastolic heart failure. The patient will be admitted. We will consult Cardiology, cardiac monitoring, serial enzymes, serial EKGs, IV Lasix. Continue home medicines. ANNA BAY DO DR: MIKE/bear JOB#: [id number] / [id number]
[2016-12-21] MEDS ORDERED: ALBUTEROL SULFATE 2.5 MG/3 ML NEBU. NEB PRN (13:15)
[2016-12-21 15:46] VITALS: BP 151/62
[2016-12-21] MEDS: oxyCODONE/APAP 5/325 1 TAB TABLET PO PRN ×2 (16:19→21:04)
[2016-12-21 17:08] LABS: BARBITURATES NEG (NEG); BENZODIAZEPINES NEG (NEG); CANNABINOIDS NEG (NEG); COCAINE NEG (NEG); METHADONE NEG (NEG); OPIATES POS (NEG); PHENCYCLIDINE NEG (NEG)
[2016-12-21 19:46] VITALS: BP 151/57
[2016-12-21 23:12] VITALS: BP 170/70
[2016-12-22] MEDS: MORPHINE SULFATE 4 MG/ML DISP.SYRIN. IV PRN ×2 (00:48→08:17)
[2016-12-22 03:07] VITALS: BP 182/72
[2016-12-22] MEDS ORDERED: LABETALOL 20 MG/4 ML DISP.SYRIN. IVP PRN (04:00)
[2016-12-22] MEDS ORDERED: LABETALOL 20 MG/4 ML DISP.SYRIN. IVP ONE (04:30)
[2016-12-22] MEDS: oxyCODONE/APAP 5/325 1 TAB TABLET PO PRN (04:31)
[2016-12-22 04:41] VITALS: BP 169/67
[2016-12-22 05:27] LABS: BASO # 0.1 x10^3/uL (0.0-0.2); BASO % 1 % (0-3); EOS % 2 % (0-3); HEMATOCRIT 35.6 % (39.0-53.0); HEMOGLOBIN 11.5 g/dL (13.0-17.5); LYMPH % 24 % (24-48); MEAN CORPUSCULAR HEMOGLOBIN 31 pg (25-35); MEAN CORPUSCULAR HGB CONC 32 g/dL (31-37); MEAN CORPUSCULAR VOLUME 95 fL (79-100); MONO % 7 % (0-9); NEUT % 66 % (31-73); PLATELET COUNT 191 x10^3/uL (140-400); RED BLOOD COUNT 3.75 x10^6/uL (4.30-5.70); RED CELL DISTRIBUTION WIDTH 13.5 % (11.5-14.5); WHITE BLOOD COUNT 8.4 x10^3/uL (4.0-11.0)
[2016-12-22 05:47] LABS: CALCIUM 8.2 mg/dL (8.5-10.1); CREATININE 1.9 mg/dL (0.7-1.3); GFR 43.8; POTASSIUM 4.1 mmol/L (3.5-5.1)
[2016-12-22 07:00] VITALS: BP 108/61
[2016-12-22] MEDS: INSULIN ASPART 300 UNITS/3 ML INSULN.PEN SQ SCH (08:00)
[2016-12-22] MEDS: CARVEDILOL 12.5 MG TABLET. PO SCH (08:12)
[2016-12-22] MEDS: ISOSORBIDE MONONITRATE ER 30 MG TAB.ER.24H PO SCH (08:13)
[2016-12-22] MEDS: BUMETANIDE 1 MG/4 ML VIAL. IV SCH (08:13)
[2016-12-22 10:56] VITALS: BP 177/122
--- NOTE | 2016-12-22 10:57 | PDOC ---
PROGRESS NOTES Chief Complaint Chief Complaint SOB PMH: CAD CHF COPD DM HTN Kidney stones Neuropathy CABG History of Present Illness History of Present Illness Pt was laying on his side in bed and was conversant. Discussed going home with the pt today as long as cardiology approves. Pt repeats that he thinks he has been here long enough. Cardiology restarted his home meds (carvedilol, Imdur, and his diuretics. Pt has negative urine tox screen Vitals Vitals Vital Signs Date Time Temp Pulse Resp B/P (MAP) Pulse Ox O2 Delivery O2 Flow Rate FiO2 12/22/16 08:17 95 Nasal Cannula 2.0 12/22/16 08:14 68 199/84 12/22/16 07:00 98.1 18 98.1 Physical Exam General: Alert, Oriented X3, Cooperative, No acute distress Heart: Regular rate, Normal S1, Normal S2, Other (distant heart sounds) Lungs: Clear, Other Abdomen: Normal bowel sounds, Soft, No masses Extremities: No clubbing, No cyanosis Skin: Other (pt had bilateral lower extremity skin lesions - possible stasis dermatitis ) Labs LABS Laboratory Tests Test 12/21/16 11:20 12/21/16 15:55 12/21/16 16:15 12/21/16 16:50 Glucose (Fingerstick) 142 mg/dL (70-99) 138 mg/dL (70-99) Troponin I Quantitative 0.037 ng/mL (0.000-0.055) Urine Opiates Screen Pos (NEG) Urine Methadone Screen Neg (NEG) Urine Barbiturates Neg (NEG) Urine Phencyclidine Screen Neg (NEG) Urine Amphetamine/Methamphetamine Neg (NEG) Urine Benzodiazepines Screen Neg (NEG) Urine Cocaine Screen Neg (NEG) Urine Cannabinoids Screen Neg (NEG) Urine Ethyl Alcohol Neg (NEG) Test 12/21/16 20:58 12/22/16 04:15 12/22/16 07:33 Glucose (Fingerstick) 176 mg/dL (70-99) 139 mg/dL (70-99) White Blood Count 8.4 x10^3/uL (4.0-11.0) Red Blood Count 3.75 x10^6/uL (4.30-5.70) Hemoglobin 11.5 g/dL (13.0-17.5) Hematocrit 35.6 % (39.0-53.0) Mean Corpuscular Volume 95 fL (79-100) Mean Corpuscular Hemoglobin 31 pg (25-35) Mean Corpuscular Hemoglobin Concent 32 g/dL (31-37) Red Cell Distribution Width 13.5 % (11.5-14.5) Platelet Count 191 x10^3/uL (140-400) Neutrophils (%) (Auto) 66 % (31-73) Lymphocytes (%) (Auto) 24 % (24-48) Monocytes (%) (Auto) 7 % (0-9) Eosinophils (%) (Auto) 2 % (0-3) Basophils (%) (Auto) 1 % (0-3) Neutrophils # (Auto) 5.5 x10^3uL (1.8-7.7) Lymphocytes # (Auto) 2.0 x10^3/uL (1.0-4.8) Monocytes # (Auto) 0.6 x10^3/uL (0.0-1.1) Eosinophils # (Auto) 0.2 x10^3/uL (0.0-0.7) Basophils # (Auto) 0.1 x10^3/uL (0.0-0.2) Sodium Level 142 mmol/L (136-145) Potassium Level 4.1 mmol/L (3.5-5.1) Chloride Level 109 mmol/L (98-107) Carbon Dioxide Level 28 mmol/L (21-32) Anion Gap 5 (6-14) Blood Urea Nitrogen 27 mg/dL (8-26) Creatinine 1.9 mg/dL (0.7-1.3) Estimated GFR (Cockcroft-Gault) 43.8 Glucose Level 153 mg/dL (70-99) Calcium Level 8.2 mg/dL (8.5-10.1) Review of Systems Review of Systems Pt complains of hunger Pt complains of constant pain Assessment and Plan Assessmemt and Plan Problems Medical Problems: (1) Uncontrolled hypertension Status: Acute SOB PMH: CAD CHF COPD DM HTN Kidney stones Neuropathy CABG Plan: Agree with cardiology PT/OT Recheck labs Diurese Home meds Consulted Dr. Amaro with nephrology D/C when ok with cardiology Problems: Comment Review of Relevant I have reviewed the following items cinthia (where applicable) has been applied. Labs Laboratory Tests Test 12/21/16 03:20 12/21/16 07:32 12/21/16 10:18 12/21/16 11:20 White Blood Count 10.2 x10^3/uL (4.0-11.0) Red Blood Count 4.15 x10^6/uL (4.30-5.70) Hemoglobin 12.7 g/dL (13.0-17.5) Hematocrit 39.3 % (39.0-53.0) Mean Corpuscular Volume 95 fL (79-100) Mean Corpuscular Hemoglobin 31 pg (25-35) Mean Corpuscular Hemoglobin Concent 32 g/dL (31-37) Red Cell Distribution Width 13.2 % (11.5-14.5) Platelet Count 209 x10^3/uL (140-400) Neutrophils (%) (Auto) 71 % (31-73) Lymphocytes (%) (Auto) 19 % (24-48) Monocytes (%) (Auto) 7 % (0-9) Eosinophils (%) (Auto) 2 % (0-3) Basophils (%) (Auto) 1 % (0-3) Neutrophils # (Auto) 7.3 x10^3uL (1.8-7.7) Lymphocytes # (Auto) 2.0 x10^3/uL (1.0-4.8) Monocytes # (Auto) 0.7 x10^3/uL (0.0-1.1) Eosinophils # (Auto) 0.2 x10^3/uL (0.0-0.7) Basophils # (Auto) 0.1 x10^3/uL (0.0-0.2) Sodium Level 142 mmol/L (136-145) Potassium Level 3.4 mmol/L (3.5-5.1) Chloride Level 107 mmol/L (98-107) Carbon Dioxide Level 28 mmol/L (21-32) Anion Gap 7 (6-14) Blood Urea Nitrogen 24 mg/dL (8-26) Creatinine 1.6 mg/dL (0.7-1.3) Estimated GFR (Cockcroft-Gault) 53.4 Glucose Level 167 mg/dL (70-99) Calcium Level 8.3 mg/dL (8.5-10.1) Magnesium Level 2.0 mg/dL (1.8-2.4) Total Bilirubin 0.4 mg/dL (0.2-1.0) Direct Bilirubin 0.1 mg/dL (0.0-0.2) Aspartate Amino Transf (AST/SGOT) 24 U/L (15-37) Alanine Aminotransferase (ALT/SGPT) 19 U/L (16-63) Alkaline Phosphatase 164 U/L (46-116) Troponin I Quantitative 0.039 ng/mL (0.000-0.055) 0.041 ng/mL (0.000-0.055) TX-[id number]-Type Natriuretic Peptide 5940 pg/mL (0-124) Total Protein 5.7 g/dL (6.4-8.2) Albumin 1.8 g/dL (3.4-5.0) Glucose (Fingerstick) 226 mg/dL (70-99) 142 mg/dL (70-99) Test 12/21/16 15:55 12/21/16 16:15 12/21/16 16:50 12/21/16 20:58 Glucose (Fingerstick) 138 mg/dL (70-99) 176 mg/dL (70-99) Troponin I Quantitative 0.037 ng/mL (0.000-0.055) Urine Opiates Screen Pos (NEG) Urine Methadone Screen Neg (NEG) Urine Barbiturates Neg (NEG) Urine Phencyclidine Screen Neg (NEG) Urine Amphetamine/Methamphetamine Neg (NEG) Urine Benzodiazepines Screen Neg (NEG) Urine Cocaine Screen Neg (NEG) Urine Cannabinoids Screen Neg (NEG) Urine Ethyl Alcohol Neg (NEG) Test 12/22/16 04:15 12/22/16 07:33 White Blood Count 8.4 x10^3/uL (4.0-11.0) Red Blood Count 3.75 x10^6/uL (4.30-5.70) Hemoglobin 11.5 g/dL (13.0-17.5) Hematocrit 35.6 % (39.0-53.0) Mean Corpuscular Volume 95 fL (79-100) Mean Corpuscular Hemoglobin 31 pg (25-35) Mean Corpuscular Hemoglobin Concent 32 g/dL (31-37) Red Cell Distribution Width 13.5 % (11.5-14.5) Platelet Count 191 x10^3/uL (140-400) Neutrophils (%) (Auto) 66 % (31-73) Lymphocytes (%) (Auto) 24 % (24-48) Monocytes (%) (Auto) 7 % (0-9) Eosinophils (%) (Auto) 2 % (0-3) Basophils (%) (Auto) 1 % (0-3) Neutrophils # (Auto) 5.5 x10^3uL (1.8-7.7) Lymphocytes # (Auto) 2.0 x10^3/uL (1.0-4.8) Monocytes # (Auto) 0.6 x10^3/uL (0.0-1.1) Eosinophils # (Auto) 0.2 x10^3/uL (0.0-0.7) Basophils # (Auto) 0.1 x10^3/uL (0.0-0.2) Sodium Level 142 mmol/L (136-145) Potassium Level 4.1 mmol/L (3.5-5.1) Chloride Level 109 mmol/L (98-107) Carbon Dioxide Level 28 mmol/L (21-32) Anion Gap 5 (6-14) Blood Urea Nitrogen 27 mg/dL (8-26) Creatinine 1.9 mg/dL (0.7-1.3) Estimated GFR (Cockcroft-Gault) 43.8 Glucose Level 153 mg/dL (70-99) Calcium Level 8.2 mg/dL (8.5-10.1) Glucose (Fingerstick) 139 mg/dL (70-99) Laboratory Tests Test 12/21/16 11:20 12/21/16 15:55 12/21/16 16:15 12/21/16 16:50 Glucose (Fingerstick) 142 mg/dL (70-99) 138 mg/dL (70-99) Troponin I Quantitative 0.037 ng/mL (0.000-0.055) Urine Opiates Screen Pos (NEG) Urine Methadone Screen Neg (NEG) Urine Barbiturates Neg (NEG) Urine Phencyclidine Screen Neg (NEG) Urine Amphetamine/Methamphetamine Neg (NEG) Urine Benzodiazepines Screen Neg (NEG) Urine Cocaine Screen Neg (NEG) Urine Cannabinoids Screen Neg (NEG) Urine Ethyl Alcohol Neg (NEG) Test 12/21/16 20:58 12/22/16 04:15 12/22/16 07:33 Glucose (Fingerstick) 176 mg/dL (70-99) 139 mg/dL (70-99) White Blood Count 8.4 x10^3/uL (4.0-11.0) Red Blood Count 3.75 x10^6/uL (4.30-5.70) Hemoglobin 11.5 g/dL (13.0-17.5) Hematocrit 35.6 % (39.0-53.0) Mean Corpuscular Volume 95 fL (79-100) Mean Corpuscular Hemoglobin 31 pg (25-35) Mean Corpuscular Hemoglobin Concent 32 g/dL (31-37) Red Cell Distribution Width 13.5 % (11.5-14.5) Platelet Count 191 x10^3/uL (140-400) Neutrophils (%) (Auto) 66 % (31-73) Lymphocytes (%) (Auto) 24 % (24-48) Monocytes (%) (Auto) 7 % (0-9) Eosinophils (%) (Auto) 2 % (0-3) Basophils (%) (Auto) 1 % (0-3) Neutrophils # (Auto) 5.5 x10^3uL (1.8-7.7) Lymphocytes # (Auto) 2.0 x10^3/uL (1.0-4.8) Monocytes # (Auto) 0.6 x10^3/uL (0.0-1.1) Eosinophils # (Auto) 0.2 x10^3/uL (0.0-0.7) Basophils # (Auto) 0.1 x10^3/uL (0.0-0.2) Sodium Level 142 mmol/L (136-145) Potassium Level 4.1 mmol/L (3.5-5.1) Chloride Level 109 mmol/L (98-107) Carbon Dioxide Level 28 mmol/L (21-32) Anion Gap 5 (6-14) Blood Urea Nitrogen 27 mg/dL (8-26) Creatinine 1.9 mg/dL (0.7-1.3) Estimated GFR (Cockcroft-Gault) 43.8 Glucose Level 153 mg/dL (70-99) Calcium Level 8.2 mg/dL (8.5-10.1) Medications Current Medications Labetalol HCl (Normodyne) 20 mg 1X ONCE IVP Last administered on 12/21/16 03: 36; Start 12/21/16 at 03:30; Stop 12/21/16 at 03:31; Status DC Albuterol/ Ipratropium (Duoneb) 3 ml STK-MED ONCE .ROUTE ; Start 12/21/16 at 02: 57; Stop 12/21/16 at 02:58; Status DC Albuterol/ Ipratropium (Duoneb) 3 ml 1X ONCE NEB Last administered on 03:15; Start 12/21/16 at 03:15; Stop 12/21/16 at 03:22; Status DC Furosemide (Lasix) 40 mg 1X ONCE IVP Last administered on 12/21/16 04:56; Start 12/21/16 at 04:30; Stop 12/21/16 at 04:31; Status DC Ondansetron HCl (Zofran) 4 mg PRN Q8HRS PRN IV NAUSEA/VOMITING Last administered on 12/21/16 04:49; Start 12/21/16 at 04:30; Stop 12/22/16 at 04:29 ; Status DC Morphine Sulfate 2 mg PRN Q2HR PRN IV SEVERE PAIN Last administered on 08:17; Start 12/21/16 at 04:30 Morphine Sulfate 6 mg 1X ONCE IV Last administered on 12/21/16 04:50; Start 12/21/16 at 05:00; Stop 12/21/16 at 05:01; Status DC Labetalol HCl (Normodyne) 30 mg 1X ONCE IVP Last administered on 12/21/16 04: 51; Start 12/21/16 at 05:00; Stop 12/21/16 at 05:01; Status DC Hydralazine HCl (Apresoline) 10 mg 1X ONCE IVP Last administered on 12/21/16 05:10; Start 12/21/16 at 05:30; Stop 12/21/16 at 05:31; Status DC Insulin Aspart (NovoLOG) 0-7 UNITS TIDWMEALS SQ Last administered on 12/21/16 09:02; Start 12/21/16 at 09:00 Dextrose (Dextrose 50%-Water Syringe) 12.5 gm PRN Q15MIN PRN IV SEE COMMENTS; Start 12/21/16 at 08:45 Potassium Chloride (Klor-Con) 40 meq 1X ONCE PO Last administered on 10:37; Start 12/21/16 at 10:00; Stop 12/21/16 at 10:01; Status DC Carvedilol (Coreg) 12.5 mg BIDWMEALS PO Last administered on 12/22/16 08:12; Start 12/21/16 at 11:00 Isosorbide Mononitrate (Imdur) 30 mg DAILY PO Last administered on 12/22/16 08 :13; Start 12/21/16 at 11:00 Bumetanide (Bumex) 1 mg [id number] IV Last administered on 12/22/16 08:13; Start 12/21/16 at 11:00 Potassium Chloride (KCl Oral Soln) 40 meq 1X ONCE PEG Last administered on 11:15; Start 12/21/16 at 11:15; Stop 12/21/16 at 11:16; Status DC Oxycodone/ Acetaminophen (Percocet 5/325) 1 tab PRN Q4HRS PRN PO PAIN Last administered on 12/22/16 04:31; Start 12/21/16 at 12:30 Albuterol Sulfate (Ventolin Neb Soln) 2.5 mg PRN Q4HRS PRN NEB SHORTNESS OF BREATH Last administered on 12/21/16 13:25; Start 12/21/16 at 13:15 Labetalol HCl (Normodyne) 20 mg 1X ONCE IVP Last administered on 12/22/16 04: 07; Start 12/22/16 at 04:30; Stop 12/22/16 at 04:31; Status DC Labetalol HCl (Normodyne) 20 mg PRN Q2HR PRN IVP HYPERTENSION, SEE COMMENTS Last administered on 12/22/16 08:14; Start 12/22/16 at 04:00 Active Scripts Active Magnesium Citrate 296 Ml Solution 296 Ml PO ONCE Flomax (Tamsulosin Hcl) 0.4 Mg Cap.er.24h 1 Cap PO DAILY Zofran Odt (Ondansetron) 4 Mg Tab.rapdis 1 Tab SL Q8HRS PRN Volin 5-325 Tablet (Acetaminophen/Hydrocodone Bitart) 1 Each Tablet 1 Tab PO PRN Q6HRS PRN Tussionex Pennkinetic Susp (Hydrocodone/Chlorphen Polis) 480 Ml Larisa.er.12h 5 Ml PO BID PRN Tamiflu (Oseltamivir Phosphate) 75 Mg Capsule 1 Cap PO BID Cyclobenzaprine Hcl 10 Mg Tablet 10 Mg PO TID PRN Dulcolax (Bisacodyl) 5 Mg Tablet.dr 5 Mg PO PRN DAILY PRN Naproxen 250 Mg Tablet 250 Mg PO PRN BID PRN Cyclobenzaprine Hcl 5 Mg Tablet 5 Mg PO TID Levemir Flextouch (Insulin Detemir) 100 Unit/1 Ml Insuln.pen 40 Units SQ QHS 30 Days Novolog Flexpen (Insulin Aspart) 100 Unit/1 Ml Insuln.pen 15 Units SQ TIDAC 30 Days Aspirin Ec (Aspirin) 81 Mg Tablet.dr 81 Mg PO DAILY 30 Days Lyrica (Pregabalin) 75 Mg Capsule 1 Cap PO BID Reported Symbicort 160-4.5 Mcg Inhaler (Budesonide/Formoterol Fumarate) 10.2 Gm Hfa.aer.ad 2 Puff IH BID Not given on this admission Take as directed Tylenol (Acetaminophen) 325 Mg Tablet 1 Tab PO PRN Q6HRS PRN Not given on this admission Take when needed Senna Plus Tablet (Sennosides/Docusate Sodium) 1 Each Tablet 1 Each PO BID Not given on this admission Take as directed Clopidogrel (Clopidogrel Bisulfate) 75 Mg Tablet 1 Tab PO DAILY Not given on this admission Take as directed Nitrostat (Nitroglycerin) 0.4 Mg Tab.subl 1 Tab SL UD PRN Not given on this admission Take as directed Levothyroxine Sodium 50 Mcg Tablet 1 Tab PO DAILY Not given on this admission Take as directed Lantus (Insulin Glargine,Hum.rec.anlog) 100 Unit/1 Ml Vial 40 Unit SQ QHS Humalog (Insulin Lispro) 100 Unit/1 Ml Cartridge 10 Unit SQ TIDAC Isosorbide Mononitrate Er (Isosorbide Mononitrate) 120 Mg Tab.er.24h 120 Mg PO DAILY Not given on this admission Take as directed Flomax (Tamsulosin Hcl) 0.4 Mg Cap.er.24h 2 Cap PO DAILY Not given on this admission Take as directed Doxazosin Mesylate 4 Mg Tablet 1 Tab PO QHS Not given on this admission Take as directed Amlodipine Besylate 10 Mg Tablet 10 Mg PO DAILY Not given on this admission Take as directed Hydralazine Hcl 25 Mg Tablet 100 Mg PO TID Not given on this admission Take as directed Atorvastatin Calcium 80 Mg Tablet 80 Mg PO HS Not given on this admission Take as directed Bumetanide 2 Mg Tablet 1 Tab PO BID Not given on this admission Take as directed Carvedilol 25 Mg Tablet 2 Tab PO BID Not given on this admission Take as directed Isosorbide Dinitrate 30 Mg Tablet 60 Mg PO Q8HRS PRN Pantoprazole Sodium 40 Mg Tablet.dr 1 Tab PO DAILY Not given on this admission Take as directed Vitals/I & O Vital Sign - Last 24 Hours 12/21/16 12/21/16 12/21/16 12/21/16 11:09 11:15 11:15 11:16 Temp 98.5 98.5 Pulse 70 70 70 Resp 20 16 B/P (MAP) 166/59 (94) 166/59 166/59 Pulse Ox 96 96 O2 Delivery Room Air Nasal Cannula O2 Flow Rate 2.0 12/21/16 12/21/16 12/21/16 12/21/16 11:46 13:25 15:46 16:18 Temp 98.5 98.5 Pulse 67 67 Resp 19 B/P (MAP) 151/62 (91) 151/62 Pulse Ox 96 98 100 O2 Delivery Nasal Cannula Room Air O2 Flow Rate 2.0 12/21/16 12/21/16 12/21/16 12/21/16 16:19 17:19 19:46 19:47 Temp 98.7 98.7 Pulse 68 Resp 16 18 16 B/P (MAP) 151/57 (88) Pulse Ox 100 100 97 O2 Delivery Nasal Cannula Nasal Cannula O2 Flow Rate 2.0 2.0 12/21/16 12/21/16 12/21/16 12/21/16 20:00 20:15 21:04 22:00 Resp 18 17 O2 Delivery Nasal Cannula Nasal Cannula Nasal Cannula O2 Flow Rate 2.0 2.0 2.0 2.0 12/21/16 12/22/16 12/22/16 12/22/16 23:12 00:48 01:15 03:07 Temp 98.4 98.5 98.4 98.5 Pulse 71 72 Resp 20 17 19 18 B/P (MAP) 170/70 (103) 182/72 (108) Pulse Ox 99 96 O2 Delivery Room Air Room Air Room Air Room Air 12/22/16 12/22/16 12/22/16 12/22/16 04:07 04:31 04:41 07:00 Temp 98.1 98.1 Pulse 84 66 68 Resp 18 18 B/P (MAP) 197/82 169/67 (101) 108/61 (77) Pulse Ox 95 O2 Delivery Room Air Room Air 12/22/16 12/22/16 12/22/16 12/22/16 08:00 08:12 08:13 08:14 Pulse 66 66 68 B/P (MAP) 199/84 199/84 199/84 O2 Delivery Room Air O2 Flow Rate 2.0 12/22/16 08:17 Pulse Ox 95 O2 Delivery Nasal Cannula O2 Flow Rate 2.0 ANNA BAY III DO Dec 22, 2016 10:57
--- NOTE | 2016-12-22 11:31 | PDOC2 ---
CONSULT Date of Consult Date of Consult DATE: 12/22/16 TIME: 11:26 Reason for Consult Reason for Consult: RENAL FAILURE Referring Physician Referring Physician: PHU Identification/Chief Complaint Chief Complaint SOB AND CHEST PAIN Problems: Source Source: Chart review, Patient History of Present Illness Reason for Visit: THIS IS A 61 YR OLD ADMITTED WITH CHEST PAIN AND SOB. CXRAYS SHOWED CARDIOMEGALY AND CHF. HIS CR IS THE 1.6-1.9 RANGE HERE. RECORD REVIEW SHOWED A CR OF 1.5-2.0 AT BASELINE C/W CKD STAGE 3. HTN NOT WELL CONTROLLED. CURRENTLY STARTED OF IV BUMEX. HX POS FOR DM II AND HTN AND END ORGAN KIDNEY DAMAGE DUE TO ABOVE. NO NEPHROTOXINS NOTED Past Medical History Cardiovascular: CAD, CHF, HTN, Hyperlipidemia, Valve insufficiency Pulmonary: COPD, Pulmonary embolus CENTRAL NERVOUS SYSTEM: CVA, Periperal neuropathy GI: GERD Heme/Onc: No pertinent hx Hepatobiliary: No pertinent hx Psych: Anxiety Musculoskeletal: Osteoarthritis Rheumatologic: Fibromyalgia Infectious disease: No pertinent hx Renal/: Chronic renal insuff, Benign prostatic enlarg. Endocrine: Diabetes Past Surgical History Past Surgical History: Cholecystectomy, CABG, Other Family History Family History: Coronary Artery Disease Social History ALCOHOL: none Drugs: Other Lives: Alone Domestic Violence: Neg Current Problem List Problem List Problems Medical Problems: (1) Uncontrolled hypertension Status: Acute Current Medications Current Medications Current Medications Labetalol HCl (Normodyne) 20 mg 1X ONCE IVP Last administered on 12/21/16 03: 36; Start 12/21/16 at 03:30; Stop 12/21/16 at 03:31; Status DC Albuterol/ Ipratropium (Duoneb) 3 ml STK-MED ONCE .ROUTE ; Start 12/21/16 at 02: 57; Stop 12/21/16 at 02:58; Status DC Albuterol/ Ipratropium (Duoneb) 3 ml 1X ONCE NEB Last administered on 03:15; Start 12/21/16 at 03:15; Stop 12/21/16 at 03:22; Status DC Furosemide (Lasix) 40 mg 1X ONCE IVP Last administered on 12/21/16 04:56; Start 12/21/16 at 04:30; Stop 12/21/16 at 04:31; Status DC Ondansetron HCl (Zofran) 4 mg PRN Q8HRS PRN IV NAUSEA/VOMITING Last administered on 12/21/16 04:49; Start 12/21/16 at 04:30; Stop 12/22/16 at 04:29 ; Status DC Morphine Sulfate 2 mg PRN Q2HR PRN IV SEVERE PAIN Last administered on 08:17; Start 12/21/16 at 04:30 Morphine Sulfate 6 mg 1X ONCE IV Last administered on 12/21/16 04:50; Start 12/21/16 at 05:00; Stop 12/21/16 at 05:01; Status DC Labetalol HCl (Normodyne) 30 mg 1X ONCE IVP Last administered on 12/21/16 04: 51; Start 12/21/16 at 05:00; Stop 12/21/16 at 05:01; Status DC Hydralazine HCl (Apresoline) 10 mg 1X ONCE IVP Last administered on 12/21/16 05:10; Start 12/21/16 at 05:30; Stop 12/21/16 at 05:31; Status DC Insulin Aspart (NovoLOG) 0-7 UNITS TIDWMEALS SQ Last administered on 12/21/16 09:02; Start 12/21/16 at 09:00 Dextrose (Dextrose 50%-Water Syringe) 12.5 gm PRN Q15MIN PRN IV SEE COMMENTS; Start 12/21/16 at 08:45 Potassium Chloride (Klor-Con) 40 meq 1X ONCE PO Last administered on 10:37; Start 12/21/16 at 10:00; Stop 12/21/16 at 10:01; Status DC Carvedilol (Coreg) 12.5 mg BIDWMEALS PO Last administered on 12/22/16 08:12; Start 12/21/16 at 11:00 Isosorbide Mononitrate (Imdur) 30 mg DAILY PO Last administered on 12/22/16 08 :13; Start 12/21/16 at 11:00 Bumetanide (Bumex) 1 mg BID92 IV Last administered on 12/22/16 08:13; Start 12/21/16 at 11:00 Potassium Chloride (KCl Oral Soln) 40 meq 1X ONCE PEG Last administered on 10/ 1/17at 11:15; Start 12/21/16 at 11:15; Stop 12/21/16 at 11:16; Status DC Oxycodone/ Acetaminophen (Percocet 5/325) 1 tab PRN Q4HRS PRN PO PAIN Last administered on 12/22/16 04:31; Start 12/21/16 at 12:30 Albuterol Sulfate (Ventolin Neb Soln) 2.5 mg PRN Q4HRS PRN NEB SHORTNESS OF BREATH Last administered on 12/21/16 13:25; Start 12/21/16 at 13:15 Labetalol HCl (Normodyne) 20 mg 1X ONCE IVP Last administered on 12/22/16 04: 07; Start 12/22/16 at 04:30; Stop 12/22/16 at 04:31; Status DC Labetalol HCl (Normodyne) 20 mg PRN Q2HR PRN IVP HYPERTENSION, SEE COMMENTS Last administered on 12/22/16 08:14; Start 12/22/16 at 04:00 Active Scripts Active Magnesium Citrate 296 Ml Solution 296 Ml PO ONCE Flomax (Tamsulosin Hcl) 0.4 Mg Cap.er.24h 1 Cap PO DAILY Zofran Odt (Ondansetron) 4 Mg Tab.rapdis 1 Tab SL Q8HRS PRN [place] 5-325 Tablet (Acetaminophen/Hydrocodone Bitart) 1 Each Tablet 1 Tab PO PRN Q6HRS PRN Tussionex Pennkinetic Susp (Hydrocodone/Chlorphen Polis) 480 Ml Larisa.er.12h 5 Ml PO BID PRN Tamiflu (Oseltamivir Phosphate) 75 Mg Capsule 1 Cap PO BID Cyclobenzaprine Hcl 10 Mg Tablet 10 Mg PO TID PRN Dulcolax (Bisacodyl) 5 Mg Tablet. 5 Mg PO PRN DAILY PRN Naproxen 250 Mg Tablet 250 Mg PO PRN BID PRN Cyclobenzaprine Hcl 5 Mg Tablet 5 Mg PO TID Levemir Flextouch (Insulin Detemir) 100 Unit/1 Ml Insuln.pen 40 Units SQ QHS 30 Days Novolog Flexpen (Insulin Aspart) 100 Unit/1 Ml Insuln.pen 15 Units SQ TIDAC 30 Days Aspirin Ec (Aspirin) 81 Mg Tablet.dr 81 Mg PO DAILY 30 Days Lyrica (Pregabalin) 75 Mg Capsule 1 Cap PO BID Reported Symbicort 160-4.5 Mcg Inhaler (Budesonide/Formoterol Fumarate) 10.2 Gm Hfa.aer.ad 2 Puff IH BID Not given on this admission Take as directed Tylenol (Acetaminophen) 325 Mg Tablet 1 Tab PO PRN Q6HRS PRN Not given on this admission Take when needed Senna Plus Tablet (Sennosides/Docusate Sodium) 1 Each Tablet 1 Each PO BID Not given on this admission Take as directed Clopidogrel (Clopidogrel Bisulfate) 75 Mg Tablet 1 Tab PO DAILY Not given on this admission Take as directed Nitrostat (Nitroglycerin) 0.4 Mg Tab.subl 1 Tab SL UD PRN Not given on this admission Take as directed Levothyroxine Sodium 50 Mcg Tablet 1 Tab PO DAILY Not given on this admission Take as directed Lantus (Insulin Glargine,Hum.rec.anlog) 100 Unit/1 Ml Vial 40 Unit SQ QHS Humalog (Insulin Lispro) 100 Unit/1 Ml Cartridge 10 Unit SQ TIDAC Isosorbide Mononitrate Er (Isosorbide Mononitrate) 120 Mg Tab.er.24h 120 Mg PO DAILY Not given on this admission Take as directed Flomax (Tamsulosin Hcl) 0.4 Mg Cap.er.24h 2 Cap PO DAILY Not given on this admission Take as directed Doxazosin Mesylate 4 Mg Tablet 1 Tab PO QHS Not given on this admission Take as directed Amlodipine Besylate 10 Mg Tablet 10 Mg PO DAILY Not given on this admission Take as directed Hydralazine Hcl 25 Mg Tablet 100 Mg PO TID Not given on this admission Take as directed Atorvastatin Calcium 80 Mg Tablet 80 Mg PO HS Not given on this admission Take as directed Bumetanide 2 Mg Tablet 1 Tab PO BID Not given on this admission Take as directed Carvedilol 25 Mg Tablet 2 Tab PO BID Not given on this admission Take as directed Isosorbide Dinitrate 30 Mg Tablet 60 Mg PO Q8HRS PRN Pantoprazole Sodium 40 Mg Tablet.dr 1 Tab PO DAILY Not given on this admission Take as directed Allergies Allergies: Coded Allergies: No Known Drug Allergies (Unverified , 04/07/14) ROS General: YES: Fatigue, Appetite HEENT: YES: Heacaches Respiratory: YES: Cough, Shortness of breath, SOB with excertion Cardiovascular: yes Chest Pain, yes Edema Gastrointestinal: Yes Constipation Genitourinary: YES Other (NOCTURIA) Musculoskeletal: Yes Muscular Weakness Neurological: Yes Weakness Skin: Yes Dry Skin Physical Exam General: Alert, Oriented X3, Cooperative HEENT: Atraumatic, PERRLA Lungs: Other (DECREASED AT BASES) Heart: Regular rate Abdomen: Normal bowel sounds Extremities: No clubbing, Other (1-2+ EDEMA) Neuro: Normal speech, Cranial nerves 3-12 NL Psych/Mental Status: Mental status NL, Mood NL MUSCULOSKELETAL: No deformity, No swelling Vitals VITALS Vital Signs Date Time Temp Pulse Resp B/P (MAP) Pulse Ox O2 Delivery O2 Flow Rate FiO2 12/22/16 11:00 95 Room Air 2.0 12/22/16 10:56 97.7 67 18 177/122 (140) 97.7 Labs Labs Laboratory Tests Test 12/21/16 03:20 12/21/16 07:32 12/21/16 10:18 12/21/16 11:20 White Blood Count 10.2 x10^3/uL (4.0-11.0) Red Blood Count 4.15 x10^6/uL (4.30-5.70) Hemoglobin 12.7 g/dL (13.0-17.5) Hematocrit 39.3 % (39.0-53.0) Mean Corpuscular Volume 95 fL (79-100) Mean Corpuscular Hemoglobin 31 pg (25-35) Mean Corpuscular Hemoglobin Concent 32 g/dL (31-37) Red Cell Distribution Width 13.2 % (11.5-14.5) Platelet Count 209 x10^3/uL (140-400) Neutrophils (%) (Auto) 71 % (31-73) Lymphocytes (%) (Auto) 19 % (24-48) Monocytes (%) (Auto) 7 % (0-9) Eosinophils (%) (Auto) 2 % (0-3) Basophils (%) (Auto) 1 % (0-3) Neutrophils # (Auto) 7.3 x10^3uL (1.8-7.7) Lymphocytes # (Auto) 2.0 x10^3/uL (1.0-4.8) Monocytes # (Auto) 0.7 x10^3/uL (0.0-1.1) Eosinophils # (Auto) 0.2 x10^3/uL (0.0-0.7) Basophils # (Auto) 0.1 x10^3/uL (0.0-0.2) Sodium Level 142 mmol/L (136-145) Potassium Level 3.4 mmol/L (3.5-5.1) Chloride Level 107 mmol/L (98-107) Carbon Dioxide Level 28 mmol/L (21-32) Anion Gap 7 (6-14) Blood Urea Nitrogen 24 mg/dL (8-26) Creatinine 1.6 mg/dL (0.7-1.3) Estimated GFR (Cockcroft-Gault) 53.4 Glucose Level 167 mg/dL (70-99) Calcium Level 8.3 mg/dL (8.5-10.1) Magnesium Level 2.0 mg/dL (1.8-2.4) Total Bilirubin 0.4 mg/dL (0.2-1.0) Direct Bilirubin 0.1 mg/dL (0.0-0.2) Aspartate Amino Transf (AST/SGOT) 24 U/L (15-37) Alanine Aminotransferase (ALT/SGPT) 19 U/L (16-63) Alkaline Phosphatase 164 U/L (46-116) Troponin I Quantitative 0.039 ng/mL (0.000-0.055) 0.041 ng/mL (0.000-0.055) VB-Cqt-D-Type Natriuretic Peptide 5940 pg/mL (0-124) Total Protein 5.7 g/dL (6.4-8.2) Albumin 1.8 g/dL (3.4-5.0) Glucose (Fingerstick) 226 mg/dL (70-99) 142 mg/dL (70-99) Test 12/21/16 15:55 12/21/16 16:15 12/21/16 16:50 12/21/16 20:58 Glucose (Fingerstick) 138 mg/dL (70-99) 176 mg/dL (70-99) Troponin I Quantitative 0.037 ng/mL (0.000-0.055) Urine Opiates Screen Pos (NEG) Urine Methadone Screen Neg (NEG) Urine Barbiturates Neg (NEG) Urine Phencyclidine Screen Neg (NEG) Urine Amphetamine/Methamphetamine Neg (NEG) Urine Benzodiazepines Screen Neg (NEG) Urine Cocaine Screen Neg (NEG) Urine Cannabinoids Screen Neg (NEG) Urine Ethyl Alcohol Neg (NEG) Test 12/22/16 04:15 12/22/16 07:33 12/22/16 10:30 White Blood Count 8.4 x10^3/uL (4.0-11.0) Red Blood Count 3.75 x10^6/uL (4.30-5.70) Hemoglobin 11.5 g/dL (13.0-17.5) Hematocrit 35.6 % (39.0-53.0) Mean Corpuscular Volume 95 fL (79-100) Mean Corpuscular Hemoglobin 31 pg (25-35) Mean Corpuscular Hemoglobin Concent 32 g/dL (31-37) Red Cell Distribution Width 13.5 % (11.5-14.5) Platelet Count 191 x10^3/uL (140-400) Neutrophils (%) (Auto) 66 % (31-73) Lymphocytes (%) (Auto) 24 % (24-48) Monocytes (%) (Auto) 7 % (0-9) Eosinophils (%) (Auto) 2 % (0-3) Basophils (%) (Auto) 1 % (0-3) Neutrophils # (Auto) 5.5 x10^3uL (1.8-7.7) Lymphocytes # (Auto) 2.0 x10^3/uL (1.0-4.8) Monocytes # (Auto) 0.6 x10^3/uL (0.0-1.1) Eosinophils # (Auto) 0.2 x10^3/uL (0.0-0.7) Basophils # (Auto) 0.1 x10^3/uL (0.0-0.2) Sodium Level 142 mmol/L (136-145) Potassium Level 4.1 mmol/L (3.5-5.1) Chloride Level 109 mmol/L (98-107) Carbon Dioxide Level 28 mmol/L (21-32) Anion Gap 5 (6-14) Blood Urea Nitrogen 27 mg/dL (8-26) Creatinine 1.9 mg/dL (0.7-1.3) Estimated GFR (Cockcroft-Gault) 43.8 Glucose Level 153 mg/dL (70-99) Calcium Level 8.2 mg/dL (8.5-10.1) Glucose (Fingerstick) 139 mg/dL (70-99) 232 mg/dL (70-99) Laboratory Tests Test 12/21/16 15:55 12/21/16 16:15 12/21/16 16:50 12/21/16 20:58 Glucose (Fingerstick) 138 mg/dL (70-99) 176 mg/dL (70-99) Troponin I Quantitative 0.037 ng/mL (0.000-0.055) Urine Opiates Screen Pos (NEG) Urine Methadone Screen Neg (NEG) Urine Barbiturates Neg (NEG) Urine Phencyclidine Screen Neg (NEG) Urine Amphetamine/Methamphetamine Neg (NEG) Urine Benzodiazepines Screen Neg (NEG) Urine Cocaine Screen Neg (NEG) Urine Cannabinoids Screen Neg (NEG) Urine Ethyl Alcohol Neg (NEG) Test 12/22/16 04:15 12/22/16 07:33 12/22/16 10:30 White Blood Count 8.4 x10^3/uL (4.0-11.0) Red Blood Count 3.75 x10^6/uL (4.30-5.70) Hemoglobin 11.5 g/dL (13.0-17.5) Hematocrit 35.6 % (39.0-53.0) Mean Corpuscular Volume 95 fL (79-100) Mean Corpuscular Hemoglobin 31 pg (25-35) Mean Corpuscular Hemoglobin Concent 32 g/dL (31-37) Red Cell Distribution Width 13.5 % (11.5-14.5) Platelet Count 191 x10^3/uL (140-400) Neutrophils (%) (Auto) 66 % (31-73) Lymphocytes (%) (Auto) 24 % (24-48) Monocytes (%) (Auto) 7 % (0-9) Eosinophils (%) (Auto) 2 % (0-3) Basophils (%) (Auto) 1 % (0-3) Neutrophils # (Auto) 5.5 x10^3uL (1.8-7.7) Lymphocytes # (Auto) 2.0 x10^3/uL (1.0-4.8) Monocytes # (Auto) 0.6 x10^3/uL (0.0-1.1) Eosinophils # (Auto) 0.2 x10^3/uL (0.0-0.7) Basophils # (Auto) 0.1 x10^3/uL (0.0-0.2) Sodium Level 142 mmol/L (136-145) Potassium Level 4.1 mmol/L (3.5-5.1) Chloride Level 109 mmol/L (98-107) Carbon Dioxide Level 28 mmol/L (21-32) Anion Gap 5 (6-14) Blood Urea Nitrogen 27 mg/dL (8-26) Creatinine 1.9 mg/dL (0.7-1.3) Estimated GFR (Cockcroft-Gault) 43.8 Glucose Level 153 mg/dL (70-99) Calcium Level 8.2 mg/dL (8.5-10.1) Glucose (Fingerstick) 139 mg/dL (70-99) 232 mg/dL (70-99) Assessment/Plan Assessment/Plan IMP ACUTE ON CHRONIC CHF CHEST PAIN CKD STAGE 3 WITH CR OF 1.5-2.0 AT BASELINE DM II HTN HYPOKALEMIA PLAN IVF'S CONT BUMEX IV START [facility] LABS IN AM SANTY JAFFE MD Dec 22, 2016 11:31
--- NOTE | 2016-12-22 11:38 | PDOC ---
CARDIO Progress Notes Date and Time Date of Service 12/22/2016 Time of Evaluation 1120 Subjective Subjective: No Chest Pain, No shortness of breath, No Palpitations Vitals Vitals Vital Signs Date Time Temp Pulse Resp B/P (MAP) Pulse Ox O2 Delivery O2 Flow Rate FiO2 12/22/16 11:00 95 Room Air 2.0 12/22/16 10:56 97.7 67 18 177/122 (140) 97.7 Weight Weight [ ] Laboratory Labs Laboratory Tests Test 12/21/16 15:55 12/21/16 16:15 12/21/16 16:50 12/21/16 20:58 Glucose (Fingerstick) 138 mg/dL (70-99) 176 mg/dL (70-99) Troponin I Quantitative 0.037 ng/mL (0.000-0.055) Urine Opiates Screen Pos (NEG) Urine Methadone Screen Neg (NEG) Urine Barbiturates Neg (NEG) Urine Phencyclidine Screen Neg (NEG) Urine Amphetamine/Methamphetamine Neg (NEG) Urine Benzodiazepines Screen Neg (NEG) Urine Cocaine Screen Neg (NEG) Urine Cannabinoids Screen Neg (NEG) Urine Ethyl Alcohol Neg (NEG) Test 12/22/16 04:15 12/22/16 07:33 12/22/16 10:30 White Blood Count 8.4 x10^3/uL (4.0-11.0) Red Blood Count 3.75 x10^6/uL (4.30-5.70) Hemoglobin 11.5 g/dL (13.0-17.5) Hematocrit 35.6 % (39.0-53.0) Mean Corpuscular Volume 95 fL (79-100) Mean Corpuscular Hemoglobin 31 pg (25-35) Mean Corpuscular Hemoglobin Concent 32 g/dL (31-37) Red Cell Distribution Width 13.5 % (11.5-14.5) Platelet Count 191 x10^3/uL (140-400) Neutrophils (%) (Auto) 66 % (31-73) Lymphocytes (%) (Auto) 24 % (24-48) Monocytes (%) (Auto) 7 % (0-9) Eosinophils (%) (Auto) 2 % (0-3) Basophils (%) (Auto) 1 % (0-3) Neutrophils # (Auto) 5.5 x10^3uL (1.8-7.7) Lymphocytes # (Auto) 2.0 x10^3/uL (1.0-4.8) Monocytes # (Auto) 0.6 x10^3/uL (0.0-1.1) Eosinophils # (Auto) 0.2 x10^3/uL (0.0-0.7) Basophils # (Auto) 0.1 x10^3/uL (0.0-0.2) Sodium Level 142 mmol/L (136-145) Potassium Level 4.1 mmol/L (3.5-5.1) Chloride Level 109 mmol/L (98-107) Carbon Dioxide Level 28 mmol/L (21-32) Anion Gap 5 (6-14) Blood Urea Nitrogen 27 mg/dL (8-26) Creatinine 1.9 mg/dL (0.7-1.3) Estimated GFR (Cockcroft-Gault) 43.8 Glucose Level 153 mg/dL (70-99) Calcium Level 8.2 mg/dL (8.5-10.1) Glucose (Fingerstick) 139 mg/dL (70-99) 232 mg/dL (70-99) Physical Exam HEENT: Neck Supple W Full Motion Chest: Symmetric LUNGS: Other (basilar crackles) Heart: S1S2, RRR (SR) Abdomen: Soft N/T Extremities: No Calf Tenderness Neurology: alert, oriented, follow commands Assessment Assessment 1. Acute on chronic systolic and diastolic heart failure: appears compensated 2. Atypical chest pain: no recurrence 3. Hypertension: labile 4. Noncompliance 5. Dyslipidemia. 6. Chronic kidney disease. 7. Cardiomyopathy with hx of CAD. Recommendations 1. Continue with current regimen 2. Add hydralazine, restart home amlodipine. 3. Pt medically is not ready to get discharge. discussed treatment plan. 4. At this time pt is sitting up and does not want to stay any further and wanting leave AMA. 5. 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 POOJA CARPIO APRN Dec 22, 2016 11:38
[2016-12-22] MEDS ORDERED: CLOPIDOGREL BISULFATE 75 MG TABLET PO SCH (12:00)
[2016-12-22] MEDS ORDERED: amLODIPine BESYLATE 10 MG TABLET PO SCH (12:00)
[2016-12-22] MEDS ORDERED: ASPIRIN ENTERIC COATED 81 MG TABLET.DR. PO SCH (12:00)
[2016-12-22] MEDS ORDERED: amLODIPine BESYLATE 5 MG TABLET PO SCH (12:00)
[2016-12-23] MEDS ORDERED: BUMETANIDE 1 MG/4 ML VIAL. IV SCH (09:00)
--- NOTE | 2017-01-08 12:30 | DS ---
DATE OF DISCHARGE: 12/22/2016 ADMISSION DIAGNOSES: Acute on chronic congestive heart failure secondary to systolic and diastolic dysfunction, previous history of drug abuse, chronic renal insufficiency, hypertension. DISCHARGE DIAGNOSIS: Resolving congestive heart failure. HOSPITAL COURSE: The patient is a pleasant 61-year-old male, presented with acute on chronic systolic and diastolic heart failure. He was admitted. We gave him IV Lasix, and he did well. The next day, he wanted to go home. We discharged to home. DISPOSITION: Home. ACTIVITY: As tolerated. DIET: Low sodium. MEDICATIONS: Please see the MRAD. TOTAL TIME: 34 minutes. J LUISL Aidan BAY DO DR: MIKE/bear JOB#: [id number] / [id number]
== END 2016-12-22 12:20 | disposition left against medical advice (07) | DRG 291 ==
LOC: ER 02:30 → 6 SOUTH 04:12
PROVIDERS: ADMIT Internal Medicine; ATTEND Internal Medicine
DX: I50.43 Acute on chronic combined systolic (congestive) and diastolic (congestive) heart failure (principal); N17.0 Acute kidney failure with tubular necrosis; J96.20 Acute and chronic respiratory failure, unspecified whether with hypoxia or hypercapnia; E43 Unspecified severe protein-calorie malnutrition; I13.0 Hypertensive heart and chronic kidney disease with heart failure and stage 1 through stage 4 chronic kidney disease, or unspecified chronic kidney disease; I42.9 Cardiomyopathy, unspecified; E11.22 Type 2 diabetes mellitus with diabetic chronic kidney disease; E11.40 Type 2 diabetes mellitus with diabetic neuropathy, unspecified; E78.5 Hyperlipidemia, unspecified; E87.6 Hypokalemia; F17.200 Nicotine dependence, unspecified, uncomplicated; I25.10 Atherosclerotic heart disease of native coronary artery without angina pectoris; J44.9 Chronic obstructive pulmonary disease, unspecified; K21.9 Gastro-esophageal reflux disease without esophagitis; M79.7 Fibromyalgia; N18.3 Chronic kidney disease, stage 3 (moderate); N20.0 Calculus of kidney; F11.90 Opioid use, unspecified, uncomplicated; F19.90 Other psychoactive substance use, unspecified, uncomplicated; R07.89 Other chest pain; F41.9 Anxiety disorder, unspecified; M19.90 Unspecified osteoarthritis, unspecified site; Z82.49 Family history of ischemic heart disease and other diseases of the circulatory system; Z83.3 Family history of diabetes mellitus; Z86.711 Personal history of pulmonary embolism; Z86.73 Personal history of transient ischemic attack (TIA), and cerebral infarction without residual deficits; Z87.442 Personal history of urinary calculi; Z91.14 Patient's other noncompliance with medication regimen; Z91.19 Patient's noncompliance with other medical treatment and regimen; Z95.1 Presence of aortocoronary bypass graft; Z76.5 Malingerer [conscious simulation]; Z90.49 Acquired absence of other specified parts of digestive tract; Z98.61 Coronary angioplasty status
CPT/HCPCS: 36415; 71010; 80048; 80076; 80307; 82962; 83735; 83880; 84484; 85025; 93005; 94250; 94640; 96374; 96375; J0360; J1815; J1940; J2270; J2405; J3490; J7613; J7620; 99285-25; G0479